=== PATIENT | male | born 1995 ===

== ENCOUNTER 2023-12-24 12:58 | Emergency (ER) | payer OTHER, SELFPAY ==
[2023-12-24 13:29] VITALS: BP 136/79; PULSE 69; RESP 18; TEMP 36.6; O2SAT 99; BMI 24.6
--- NOTE | 2023-12-24 13:30 | ED_ITS ---
HPI - Skin/Abscess/Foreign Bdy General Chief complaint: Skin/Abscess/Foreign Body Stated complaint: abscess Time Seen by Provider: 12/24/23 20:17 Source: patient Mode of arrival: ambulatory Limitations: no limitations History of Present Illness ED Provider: Basilia Young PA-C HPI narrative: 28-year-old male with no pertinent medical history presents for evaluation of multiple painful lesions on his left hip/thigh. For the last week he has noticed several small areas of painful irritation which he thought were ingrown hairs, they have been worsening and some have started to come to a head and drain. No known allergies to antibiotics. No fever or chills. No history of DM. MD complaint: lesion Onset (ago): week(s) (1) Location: LLE Associated symptoms: denies other symptoms Treatments prior to arrival: none Related Data Previous Rx's ?Medication ?Instructions ?Recorded cephalexin 500 mg capsule 500 mg PO Q6H 7 days #28 caps 12/24/23 doxycycline hyclate 100 mg tablet 100 mg PO BID #14 tabs 12/24/23 Allergies Allergy/AdvReac Type Severity Reaction Status Date / Time No Known Allergies Allergy Verified 12/24/23 13:32 [No Known Allergies*] Review of Systems 2 Review of Systems: Yes all other systems are reviewed and are negative PMFSH Social History Social History Advance Directives: No Advance Directives Information Provided: Yes Do you have a plan to hurt others: No Plan Physical Exam 2 Vital Signs: Vital Signs: Last Vital Signs Temp 97.8 F 12/24/23 21:11 Pulse 66 12/24/23 21:11 Resp 16 12/24/23 21:11 BP 128/79 12/24/23 21:11 Pulse Ox 100 12/24/23 21:11 O2 Del Method Room Air 12/24/23 21:11 BMI result Body Mass Index 24.6 Appearance: Alert. Oriented X3. No acute distress. Head: normocephalic, atraumatic. Neck: Normal inspection. Respiratory: No respiratory distress. Skin: Skin warm and dry. Normal skin color. Normal skin turgor. LLE shows about 6-8 inflamed hair follicles, one has scabbed over and several are coming to pustular head, mild surrounding erythema of each follicle. Extremities: No lower extremity edema. No joint swelling. Neuro/psych: Oriented X 3. No motor deficit. No sensory deficit. CN II-XII grossly intact. Normal speech and cognition. Course Course Course Narrative: This is a Rapid Medical Examination (RME) performed by Anna Colunga PA-C in triage. Full HPI, ROS, assessment and treatment plan per primary provider in the Main ED. 28 yo male here for eval of 5-6 abscessed areas on his left thigh over the last week. reports drainage from 2 of them. admits they began as a small pimple, now enlarging. admits to [facility]. denies known tick or inscet bites. denies fever/chills. has never had anything like this before. he is well appearing in triage. vitals are stable. exam of area limited in triage. complete PE to be done when patient is pulled back to ED bed. Plan: basic labs ordered Medications Administered Discontinued Medications Generic Name Dose Route Start Last Admin Trade Name Freq PRN Reason Stop Dose Admin Cephalexin HCl 500 mg 12/24/23 20:55 12/24/23 21:06 Cephalexin 500 Mg Capsule PO 12/24/23 20:56 500 mg ONCE ONE Administration Doxycycline Monohydrate 100 mg 12/24/23 20:55 12/24/23 21:06 Doxycycline Monohydrate 100 Mg Capsule PO 12/24/23 20:56 100 mg ONCE ONE Administration Glipizide 2.5 mg 12/24/23 20:20 12/24/23 20:52 Glipizide 5 Mg Tablet PO 12/24/23 20:21 Not Given ONCE ONE Ibuprofen 600 mg 12/24/23 20:55 12/24/23 21:06 Ibuprofen 600 Mg Tablet PO 12/24/23 20:56 600 mg ONCE ONE Administration Metformin HCl 850 mg 12/24/23 20:20 12/24/23 20:52 Metformin Hcl 850 Mg Tablet PO 12/24/23 20:21 Not Given ONCE ONE Medical Decision Making Medical Decision Making MDM Narrative: 28-year-old male with pertinent medical history presents for evaluation of multiple lesions on his left hip/thigh. Lesions on left hip/thigh area are consistent with folliculitis. Surrounding erythema and pustular heads are concerning for infection so will cover with antibiotics, green pus indicates MRSA coverage. Encouraged patient to do frequent hot compresses and/or baths with antibacterial soaps. Differential Diagnosis Differential Diagnoses: The differential diagnosis associated with the presentation includes folliculitis, abscess, cellulitis Lab Data MDM Lab Attestation statement: I reviewed the patient's lab results. 12/24/23 14:47 12/24/23 14:47 Labs: Lab Results 12/24/23 Range/Units 14:47 WBC 7.9 (4.8-10.8) X10*3/uL RBC 4.85 (4.60-5.80) X10*6/uL Hgb 14.3 (14.0-18.0) g/dl Hct 43.3 (42.0-52.0) % MCV 89.3 (80.0-98.0) fL MCH 29.5 (27.0-33.0) pg MCHC 33.0 (31.0-36.0) g/dl RDW 14.0 (11.0-16.0) % Plt Count 351 (160-400) X10*3/uL MPV 10.0 (9.4-12.4) fL Immature Gran % (Auto) 0.3 (0.0-0.4) % Neut % (Auto) 57.9 (45-73) % Lymph % (Auto) 31.8 (20-40) % [place] % (Auto) 7.2 (2-11) % Eos % (Auto) 2.2 (0-4) % Baso % (Auto) 0.6 (0-2) % Lymph # (Auto) 2.5 (1.2-4.9) X10*3/uL [place] # (Auto) 0.6 (0.1-1.2) X10*3/uL Eos # (Auto) 0.2 (0.0-0.4) X10*3/uL Baso # (Auto) 0.1 (0.0-0.2) X10*3/uL Abs Immat Gran (auto) 0.02 (0.00-0.03) X10*3/uL Absolute Neuts (auto) 4.6 (2.0-8.3) x10*3/uL Absolute Nucleated RBC 0.000 (0.0-0.012) X10*3/uL Nucleated RBC % (auto) 0.0 (0.0-0.2) /100WBC Sodium 141 (135-145) mmol/L Potassium 3.7 (3.3-5.1) mmol/L Chloride 107 (96-108) mmol/L Carbon Dioxide 30 H (22-29) mmol/L Anion Gap 8 L (12-20) BUN 16 (9-16) mg/dL Creatinine 0.92 (0.5-1.4) mg/dL Estim Creat Clear Calc 107.8 Estimated GFR > 60 Random Glucose 101 (60-115) mg/dL Calcium 9.7 (8.4-10.2) mg/dL Magnesium 2.1 (1.6-2.6) mg/dL Total Bilirubin 0.4 (0.0-1.0) mg/dL AST 15 (5-37) U/L ALT 14 (0-40) U/L Alkaline Phosphatase 78 (39-117) U/L Total Protein 7.7 (6.5-8.0) g/dL Albumin 4.3 (3.5-5.0) g/dL Lipase 24 (8-78) U/L External Record Review External record reviewed: Prior outpatient labs Prescription Management I considered prescription management with: Pain Medication and Antibiotic Critical Care Time Critical Care Time Critical Care Time: No Discharge Plan Discharge Clinical Impression: Folliculitis Patient Disposition: Home, Self-Care Instructions: Folliculitis (ED) Additional Instructions: Take the prescribed antibiotics as directed, complete the entire course and do not miss any doses Use warm compresses to the area several times per day If you develop new or worsening symptoms call 911 or come back to the ER for further evaluation. Prescriptions: New cephalexin 500 mg capsule 500 mg PO Q6H 7 Days Qty: 28 0RF doxycycline hyclate 100 mg tablet 100 mg PO BID Qty: 14 0RF Stand Alone Forms: Work/School Release Interventions: ED Discharge Assessment Last Done: 12/24/23 21:11 Discharge Date/Time: 12/24/23 21:11 Print Language: Yakut
[2023-12-24 14:53] LABS: MANUAL DIFF FLAG NO
[2023-12-24 14:55] LABS: Basophils Absolute Auto 0.1 X10*3/uL (0.0-0.2); Basophils Percent Auto 0.6 % (0-2); Eosinophils Absolute Auto 0.2 X10*3/uL (0.0-0.4); Eosinophils Percent Auto 2.2 % (0-4); Hematocrit 43.3 % (42.0-52.0); Hemoglobin 14.3 g/dl (14.0-18.0); Imm Gran Abs Auto 0.02 X10*3/uL (0.00-0.03); Imm Gran Pct Auto 0.3 % (0.0-0.4); Lymphocytes Absolute Auto 2.5 X10*3/uL (1.2-4.9); Lymphocytes Percent Auto 31.8 % (20-40); Mean Corpuscular Hemoglobin 29.5 pg (27.0-33.0); Mean Corpuscular Volume 89.3 fL (80.0-98.0); Monocytes Absolute Auto 0.6 X10*3/uL (0.1-1.2); Monocytes Percent Auto 7.2 % (2-11); Neutrophils Absolute Auto 4.6 x10*3/uL (2.0-8.3); Neutrophils Percent Auto 57.9 % (45-73); Platelet Count 351 X10*3/uL (160-400); Red Blood Count 4.85 X10*6/uL (4.60-5.80); White Blood Count 7.9 X10*3/uL (4.8-10.8)
[2023-12-24 15:19] LABS: Alanine Aminotransferase 14 U/L (0-40); Albumin Level 4.3 g/dL (3.5-5.0); Alkaline Phosphatase 78 U/L (39-117); Anion Gap 8 (12-20); Aspartate Amino Transferase 15 U/L (5-37); Bilirubin Total 0.4 mg/dL (0.0-1.0); Blood Urea Nitrogen 16 mg/dL (9-16); Calcium 9.7 mg/dL (8.4-10.2); Carbon Dioxide 30 mmol/L (22-29); Chloride 107 mmol/L (96-108); Creatinine Clr Calc Pharmacy 107.8; Estimated Glomerular Filt Rate > 60; Glucose Random 101 mg/dL (60-115); Lipase 24 U/L (8-78); Magnesium 2.1 mg/dL (1.6-2.6); Potassium 3.7 mmol/L (3.3-5.1); Sodium 141 mmol/L (135-145); Total Protein 7.7 g/dL (6.5-8.0)
[2023-12-24 20:27] VITALS: BP 128/79; PULSE 66; RESP 16; TEMP 36.6; O2SAT 100
[2023-12-24] MEDS: Doxycycline Monohydrate 100 MG CAPSULE PO (21:06)
[2023-12-24] MEDS: cephALEXin 500 MG CAPSULE PO (21:06)
[2023-12-24] MEDS: Ibuprofen 600 MG TABLET PO (21:06)
[2023-12-24 21:11] VITALS: BP 128/79; PULSE 66; RESP 16; TEMP 36.6; O2SAT 100
== END 2023-12-24 21:11 | disposition home or self-care (01) ==
PROVIDERS: Physician Assistant Medical; Emergency Provider Internal Medicine
DX: L73.9 Follicular disorder, unspecified (principal); Z79.899 Other long term (current) drug therapy
CPT/HCPCS: 36415; 80053; 83690; 83735; 85025; 99283

== ENCOUNTER 2024-06-04 14:26 | Observation (INO) | payer MEDICAID, OTHER, SELFPAY ==
--- NOTE | ~2024-06-04 | CT_ITS ---
EXAMINATION: CT ABDOMEN AND PELVIS WITHOUT CONTRAST CLINICAL INFORMATION: Left lower abdominal pain and bulge. Evaluate for lymphadenopathy or hernia COMPARISON: CT abdomen and pelvis April 14, 2019 TECHNIQUE: Multidetector volumetric imaging was performed from the superior aspect of the liver through the pubic symphysis. Sagittal and coronal reformatted images were obtained on the technologist's workstation. This CT examination was performed using dose optimization techniques as appropriate, variously including the following: *Automated exposure control *Adjustment of mA and/or kV according to patient size (this includes techniques or standardized protocols for targeted exams where dose is matched to indication/reason for exam; i.e. extremities or head) *Use of iterative reconstruction technique DLP: 485 mGy-cm FINDINGS: LUNG BASES: The visualized lung bases are unremarkable. LIVER, GALLBLADDER, AND BILIARY TREE: The liver is normal in size, shape, and attenuation. No focal hepatic lesion or biliary ductal dilatation is present. The gallbladder is unremarkable with no evidence of radiopaque gallstones, gallbladder wall thickening, or obvious pericholecystic inflammatory changes. PANCREAS: Unremarkable. SPLEEN: Unremarkable. ADRENAL GLANDS: Unremarkable. KIDNEYS AND URETERS: The kidneys are normal in size, shape, and attenuation. No hydronephrosis, hydroureter, or calculi seen. No perinephric stranding. BLADDER: Unremarkable. GASTROINTESTINAL TRACT: The small and large bowel are unremarkable. The appendix is unremarkable. ABDOMINAL WALL: No significant hernia is appreciated. LYMPH NODES: Enlarged left inguinal lymph nodes measuring up to 1.9 x 1.2 cm. VASCULAR: Unremarkable. PELVIC VISCERA: Unchanged 1.3 cm prostate cyst OSSEOUS STRUCTURES: Unremarkable. CT/CT abdomen pelvis wo IV con IMPRESSION: Enlarged left inguinal lymph nodes measuring up to 1.9 x 1.2 cm. Fleischner guidelines were followed. Electronically signed by: Lauri Singh MD 06/04/2024 06:42 PM EST
--- NOTE | ~2024-06-04 | XR_ITS ---
EXAMINATION: XR KNEE, LEFT CLINICAL INFORMATION: Left knee swelling. COMPARISON: None available. TECHNIQUE: Four views of the left knee. FINDINGS: No fracture or dislocation. No joint space narrowing or marginal osteophytes. No osseous erosion. No abnormal soft tissue calcification. No joint effusion. Soft tissue swelling ventral to the patella which could represent a soft tissue contusion versus prepatellar bursitis. XR/XR knee LT 4V IMPRESSION: Soft tissue swelling ventral to the patella which could represent a soft tissue contusion versus prepatellar bursitis. Electronically signed by: John Coy MD 06/04/2024 04:52 PM EST
--- NOTE | 2024-06-04 14:48 | ED_ITS ---
HPI - General Adult General Chief complaint: Extremity Problem Stated complaint: cyst on groin and knee Time Seen by Provider: 06/04/24 17:18 Source: patient and family (spouse) Mode of arrival: ambulatory Limitations: no limitations History of Present Illness ED Provider: ELMIRA PEDRO PA-C HPI narrative: 28 year old male with no significant pmhx presents to the ED today for evaluation of left knee pain/ swelling/ redness x3 days. Admits the redness is now extending down the leg. Admits to pain with flexing the left knee. Denies injury or trauma to the knee. Denies history of gout. Denies fever, chills, N/V, chest pain/ sob. Denies IVDU. Denies known tick or insect bites. Denies concern for sexually transmitted infection. denies recent travel or long car rides. He also complains of a small lump to his left lower abdomen/groin region which began a few days prior to his knee pain. Reports history of similar in the past. States he was diagnosed with folliculitis. Admits the pain extends down into his left testicle. Pain is primarily present with pressing on the affected area. Denies any drainage or overlying skin changes. Related Data Previous Rx's ?Medication ?Instructions ?Recorded cephalexin 500 mg capsule 500 mg PO Q6H 7 days #28 caps 12/24/23 doxycycline hyclate 100 mg tablet 100 mg PO BID #14 tabs 12/24/23 Allergies Allergy/AdvReac Type Severity Reaction Status Date / Time No Known Allergies Allergy Verified 06/04/24 14:50 [No Known Allergies*] Review of Systems 2 Review of Systems: Constitutional: No fever, chills, fatigue, night sweats, weight changes ENT/Mouth: No ear pain, hearing loss, nasal congestion, sinus pain, rhinorrhea, sore throat Eyes: No eye pain, swelling, redness, vision changes, discharge Cardio: No chest pain, palpitations, HUMPHRIES, orthopnea, peripheral edema Pulm: No SOB, cough, sputum, wheezing, dyspnea, hemoptysis GI: No nausea, vomiting, hematemesis, abdominal pain, diarrhea, constipation, hematochezia, melena : No irregular bleeding, dysuria, frequency, urgency, hesitancy, hematuria, flank pain, urinary flow changes, urinary incontinence or retention MSK: No back pain, neck pain, joint pain, myalgias, +left knee pain/ swelling Skin: No lesions, rashes Neuro: No weakness, numbness, paresthesias, LOC, dizziness, headache Psych: No anxiety/panic, depression, SI/HI, AH/VH All other systems reviewed and are negative. [facility] Past Medical History Attestation statement: The following information was validated with the patient. Source: old records reviewed and nursing notes reviewed Social History Social History Patient Tobacco Use Status: Never used Tobacco Advance Directives: No Advance Directives Information Provided: No Nutrition Risks: No Nutritional Risk Physical Exam ED Vital Signs: Vital Signs - 24 hr 06/04/24 14:49 06/04/24 17:24 Temperature 99.5 F 97.8 F Pulse Rate 89 70 Respiratory Rate 16 16 Blood Pressure 131/82 166/72 H Pulse Oximetry 99 98 Oxygen Delivery Method Room Air Room Air BMI result Body Mass Index 25.2 vital signs stable General: Well appearing, in no acute distress. Skin: Warm, dry, intact. No rashes or lesions. Head: Normocephalic, atraumatic. EENT: Hearing is intact b/l. Conjunctiva clear. PERRLA. EOM intact. Moist mucous membranes.? Neck: Supple without LAD? Cardiac: Chest wall symmetric. RRR Lungs: Normal respiratory effort without accessory muscle use. CTA bilaterally. Abdomen: Soft, non-tender, non-distended. No rebound tenderness or guarding. Positive BS x4. small 2cm palpable mobile mass noted to left inguinal region, ttp. no overlying skin changes. no visible mass. no warmth or pointing. Back: No midline spinous or paraspinal tenderness. No step off deformity. Ext: +see picture of LLE below. noted erythema and swelling to left knee, extending distally to mid lower left leg. No noted deformity. No pointing No fluctuance Warm, tender. No crepitus Limited ROM to left knee on flexion secondary to pain. No calf 2+ PT/DP pulse intact. Sensation intact. Neuro: AOx3. Normal speech. Ambulating with limping gait. Psych: Appropriate mood and affect. Responds appropriately to questions. Course Course Course Narrative: This is an RME: Additional HPI, ROS, PE not included below will be deferred to primary provider. RME assessment and note performed by: Traci Dowd PA-C This is a [id number], with no known medical history who presents to the ER with complaints of left knee pain, redness and left inner groin swelling. symptoms stated in left groin 2 days ago, then progressed to his left knee yesterday. Left knee is erythematous. Plan: Labs, xray, further er eval needed Reevaluation(s) Reevaluation #1: 183 -- CBC with leukocytosis to 12. No left shift. No anemia. H&H stable. Chemistry without acute electrolyte abnormality requiring intervention. No YU. Lactic WNL at 1.3. Normal liver function. ESR WNL. Elevated CRP. X-ray left knee shows soft tissue swelling ventral to the patella which may represent soft tissue contusion versus prepatellar bursitis. ct a/p showing enlarged inguinal lymph node to left inguinal chain, likely reactive to current infection. > physical exam is concerning for infectious bursitis of left knee. Erythema is now extending distally. Concern for rapid progression. I did order IV dose of vancomycin and cefazolin. He was given morphine for pain control. Xavier VENEGAS at bedside to evaluate patient. Neither him nor Dr. Castro feel as though orthopedic involvement is necessary at this point. No surgical management warranted. States that from an orthopedic standpoint, they would not get involved unless patient fails antibiotic therapy. I did reach out to hospitalist Dr. Alexander who has accepted patient admission to medicine for IV antibiotic therapy. Dr. Alexander to place admission orders. Medications Administered Generic Name Dose Route Start Last Admin Trade Name Freq PRN Reason Stop Dose Admin Docusate Sodium 100 mg 06/04/24 21:00 06/04/24 21:45 Docusate Sodium 100 Mg Capsule PO Not Given BID MARCO Enoxaparin Sodium 40 mg 06/04/24 20:00 06/04/24 21:37 Enoxaparin Sodium 40 Mg/0.4 Ml Syringe SUBCUT 40 mg Q24H MARCO Administration Doxycycline Hyclate 100 mg/ 250 mls @ 166.67 mls/hr 06/04/24 20:00 06/04/24 21:31 Sodium Chloride IV 166.67 mls/hr Q12H MARCO Administration Discontinued Medications Generic Name Dose Route Start Last Admin Trade Name Freq PRN Reason Stop Dose Admin Vancomycin HCl 1,000 mg/ 535 mls @ 267.5 mls/hr 06/04/24 19:00 06/04/24 21:40 Vancomycin HCl 750 mg/ Sodium IV 06/04/24 20:59 267.5 mls/hr Chloride ONCE ONE Administration Cefazolin Sodium/Dextrose 2 gm in 50 mls @ 100 mls/hr 06/04/24 18:04 06/04/24 19:35 Ancef IV 06/04/24 18:33 Infused ONCE ONE Infusion Morphine Sulfate 2 mg 06/04/24 17:34 06/04/24 18:55 Morphine Sulfate 2 Mg/Ml Cartridge IVPUSH 06/04/24 17:35 2 mg ONCE ONE Administration Protocol Medical Decision Making Medical Decision Making [facility] Narrative: 28 year old male with no significant pmhx presents to the ED today for evaluation of left knee pain/ swelling/ redness x3 days. Patient hypertensive, vitals otherwise WNL. Afebrile. He is nontoxic-appearing and in no acute distress. Lying on exam bed. On exam of LLE, noted erythema and swelling to left knee, extending distally to mid lower left leg. No noted deformity. No pointing No fluctuance Warm, tender. No crepitus Limited ROM to left knee on flexion secondary to pain. No calf 2+ PT/DP pulse intact. Sensation intact. He is ambulating with limping gait. On abdominal exam, small 2cm palpable mobile mass noted to left inguinal region, ttp. no overlying skin changes. no visible mass. no warmth or pointing. not reproducible. Differential diagnosis includes bursitis, septic bursitis, arthritis, tendonitis Unlikely DVT, gout, nv compromise, threat to limb, compartment syndrome, fracture, dislocation, lyme arthritis Concern for hernia versus reactive lymphadenopathy > CT abdomen/ pelvis ordered to further characterize. Plan for labs, lactate, blood cultures, imaging, re-evaluation. Differential Diagnosis Differential Diagnoses: The differential diagnosis associated with the presentation includes as above. Admission/Observation Consideration of admission/observation: Escalation of care including admission/observation considered Patient admitted to medicine for IV antibiotic treatment Consult Healthcare Provider Management of the patient was discussed with: Hospitalist (Dr. Alexander) Lab Data [facility] Lab Attestation statement: I reviewed the patient's lab results. as above. 06/04/24 15:47 06/04/24 15:47 Labs: Lab Results 06/04/24 Range/Units 15:47 WBC 12.0 H (4.8-10.8) X10*3/uL RBC 5.02 (4.60-5.80) X10*6/uL Hgb 15.0 (14.0-18.0) g/dl Hct 45.1 (42.0-52.0) % MCV 89.8 (80.0-98.0) fL MCH 29.9 (27.0-33.0) pg MCHC 33.3 (31.0-36.0) g/dl RDW 14.4 (11.0-16.0) % Plt Count 276 (160-400) X10*3/uL MPV 9.9 (9.4-12.4) fL Immature Gran % (Auto) 0.3 (0.0-0.4) % Neut % (Auto) 72.8 (45-73) % Lymph % (Auto) 18.0 L (20-40) % [place] % (Auto) 7.3 (2-11) % Eos % (Auto) 1.3 (0-4) % Baso % (Auto) 0.3 (0-2) % Lymph # (Auto) 2.2 (1.2-4.9) X10*3/uL [place] # (Auto) 0.9 (0.1-1.2) X10*3/uL Eos # (Auto) 0.2 (0.0-0.4) X10*3/uL Baso # (Auto) 0.0 (0.0-0.2) X10*3/uL Abs Immat Gran (auto) 0.04 H (0.00-0.03) X10*3/uL Absolute Neuts (auto) 8.7 H (2.0-8.3) x10*3/uL Absolute Nucleated RBC 0.000 (0.0-0.012) X10*3/uL Nucleated RBC % (auto) 0.0 (0.0-0.2) /100WBC ESR 8 (0-15) MM/HR Sodium 142 (135-145) mmol/L Potassium 3.8 (3.3-5.1) mmol/L Chloride 105 (96-108) mmol/L Carbon Dioxide 27 (22-29) mmol/L Anion Gap 14 (12-20) BUN 14 (9-16) mg/dL Creatinine 0.90 (0.5-1.4) mg/dL Estim Creat Clear Calc 110.2 Estimated GFR > 60 Random Glucose 98 (60-115) mg/dL Lactic Acid 1.3 (0.5-2.0) mmol/L Calcium 10.0 (8.4-10.2) mg/dL Total Bilirubin 1.0 (0.0-1.0) mg/dL AST 21 (5-37) U/L ALT 21 (0-40) U/L Alkaline Phosphatase 68 (39-117) U/L C-Reactive Protein 4.22 H (< or = 0.50) mg/dL Total Protein 7.5 (6.5-8.0) g/dL Albumin 4.4 (3.5-5.0) g/dL Independent Interpretation I performed an independent interpretation of an: Plain X-Ray and CT Scan Interpretation: xr left knee with soft tissue swelling, no fracture. ct abdomen/ pelvis with enlarged left inguinal lymph nodes Radiology Impression Discussion of test interpretation with radiology: I have reviewed the radiologist's reading. Radiologist Impression: EXAMINATION: XR KNEE, LEFT CLINICAL INFORMATION: Left knee swelling. COMPARISON: None available. TECHNIQUE: Four views of the left knee. FINDINGS: No fracture or dislocation. No joint space narrowing or marginal osteophytes. No osseous erosion. No abnormal soft tissue calcification. No joint effusion. Soft tissue swelling ventral to the patella which could represent a soft tissue contusion versus prepatellar bursitis. XR/XR knee LT 4V IMPRESSION: Soft tissue swelling ventral to the patella which could represent a soft tissue contusion versus prepatellar bursitis. Electronically signed by: John Coy MD 06/04/2024 04:52 PM [facility] [place] [place] EXAMINATION: CT ABDOMEN AND PELVIS WITHOUT CONTRAST CLINICAL INFORMATION: Left lower abdominal pain and bulge. Evaluate for lymphadenopathy or hernia COMPARISON: CT abdomen and pelvis April 14, 2019 TECHNIQUE: Multidetector volumetric imaging was performed from the superior aspect of the liver through the pubic symphysis. Sagittal and coronal reformatted images were obtained on the technologist's workstation. This CT examination was performed using dose optimization techniques as appropriate, variously including the following: *Automated exposure control *Adjustment of mA and/or kV according to patient size (this includes techniques or standardized protocols for targeted exams where dose is matched to indication/reason for exam; i.e. extremities or head) *Use of iterative reconstruction technique DLP: 485 mGy-cm FINDINGS: LUNG BASES: The visualized lung bases are unremarkable. LIVER, GALLBLADDER, AND BILIARY TREE: The liver is normal in size, shape, and attenuation. No focal hepatic lesion or biliary ductal dilatation is present. The gallbladder is unremarkable with no evidence of radiopaque gallstones, gallbladder wall thickening, or obvious pericholecystic inflammatory changes. PANCREAS: Unremarkable. SPLEEN: Unremarkable. ADRENAL GLANDS: Unremarkable. KIDNEYS AND URETERS: The kidneys are normal in size, shape, and attenuation. No hydronephrosis, hydroureter, or calculi seen. No perinephric stranding. BLADDER: Unremarkable. GASTROINTESTINAL TRACT: The small and large bowel are unremarkable. The appendix is unremarkable. ABDOMINAL WALL: No significant hernia is appreciated. LYMPH NODES: Enlarged left inguinal lymph nodes measuring up to 1.9 x 1.2 cm. VASCULAR: Unremarkable. PELVIC VISCERA: Unchanged 1.3 cm prostate cyst OSSEOUS STRUCTURES: Unremarkable. CT/CT abdomen pelvis wo IV con IMPRESSION: Enlarged left inguinal lymph nodes measuring up to 1.9 x 1.2 cm. Fleischner guidelines were followed. Electronically signed by: Lauri Singh MD 06/04/2024 06:42 PM [facility] [place] [place] Independent Historian Clinical information obtained from an independent historian. History obtained from or confirmed by: Spouse () External Record Review External record reviewed: Inpatient record Prescription Management I considered prescription management with: Pain Medication and Antibiotic Social Determinants Patient?s care significantly limited by Social Determinants of Health including: Other Social Determinant of Health Critical Care Time Critical Care Time Critical Care Time: Yes Total Critical Care Time: 32 Attestation: Critical care time in the amount of 32 minutes has been provided to the patient in terms of direct patient care, frequent reevaluation on IV morphine, consultation with hospitalist, review and interpretation of medical data and results, and management of potentially life-threatening conditions. This is all outside of any medical procedures. Discharge Plan Discharge Clinical Impression: Inguinal lymphadenopathy Infected prepatellar bursa Qualifiers: Laterality: left Qualified Code(s): M71.162 - Other infective bursitis, left knee Patient Disposition: Admitted As Inpatient
[2024-06-04 14:49] VITALS: BP 131/82; PULSE 89; RESP 16; TEMP 37.5; O2SAT 99; BMI 25.2
[2024-06-04 15:54] LABS: MANUAL DIFF FLAG NO
[2024-06-04 15:56] LABS: Basophils Percent Auto 0.3 % (0-2); Eosinophils Absolute Auto 0.2 X10*3/uL (0.0-0.4); Eosinophils Percent Auto 1.3 % (0-4); Hematocrit 45.1 % (42.0-52.0); Imm Gran Abs Auto 0.04 X10*3/uL (0.00-0.03); Imm Gran Pct Auto 0.3 % (0.0-0.4); Lymphocytes Absolute Auto 2.2 X10*3/uL (1.2-4.9); Mean Corpuscular HGB Conc 33.3 g/dl (31.0-36.0); Mean Corpuscular Hemoglobin 29.9 pg (27.0-33.0); Mean Corpuscular Volume 89.8 fL (80.0-98.0); Mean Platelet Volume 9.9 fL (9.4-12.4); Monocytes Absolute Auto 0.9 X10*3/uL (0.1-1.2); Monocytes Percent Auto 7.3 % (2-11); Neutrophils Absolute Auto 8.7 x10*3/uL (2.0-8.3); Neutrophils Percent Auto 72.8 % (45-73); Platelet Count 276 X10*3/uL (160-400); Red Blood Count 5.02 X10*6/uL (4.60-5.80); Red Cell Distribution Width 14.4 % (11.0-16.0)
[2024-06-04 16:14] LABS: Lactic Acid 1.3 mmol/L (0.5-2.0)
[2024-06-04 16:25] LABS: Alanine Aminotransferase 21 U/L (0-40); Albumin Level 4.4 g/dL (3.5-5.0); Anion Gap 14 (12-20); Aspartate Amino Transferase 21 U/L (5-37); Blood Urea Nitrogen 14 mg/dL (9-16); C Reactive Protein 4.22 mg/dL (< or = 0.50); Carbon Dioxide 27 mmol/L (22-29); Chloride 105 mmol/L (96-108); Creatinine Clr Calc Pharmacy 110.2; Estimated Glomerular Filt Rate > 60; Glucose Random 98 mg/dL (60-115); Potassium 3.8 mmol/L (3.3-5.1); Sodium 142 mmol/L (135-145); Total Protein 7.5 g/dL (6.5-8.0)
[2024-06-04 16:47] LABS: Erythrocyte Sedimentation Rate 8 MM/HR (0-15)
[2024-06-04 17:24] VITALS: BP 166/72; PULSE 70; RESP 16; TEMP 36.6; O2SAT 98
[2024-06-04 17:57] LABS: Alkaline Phosphatase 68 U/L (39-117)
--- NOTE | 2024-06-04 18:40 | PM.IMHP ---
History of Present Illness Date of Service: 06/04/24 Attending physician on admission: Teresita Alexander Chief Complaint: Bursitis 29-year-old male came to the hospital(as history of left upper leg question abscesses few months ago as per the patient which was treated with antibiotics) because of had a small blister on his knee which popped and afterwards developed cellulitis of left lower leg as well as has lymphangitis possible of left upper leg. Has significant area of erythema, difficulty to walk due to significant pain. denies known tick or inscet bites. denies fever/chills. has never had anything like this before. Lab imaging reviewed: Patient has leukocytosis of 12, BMP normal, knee x-ray shows possible patellar bursitis. ESR normal, CRP elevated in range of 4. CT abdomen pending Patient was given vancomycin and cefazolin in the ED and requested admission for acute bursitis/cellulitis of the left knee, and patient is unable to walk due to significant pain/ intractable pain. Denies any new complaint of chest pain or shortness of breath or abdominal pain or fever or chills or nausea or vomiting or weakness or numbness. Review of Systems Review of Systems: Yes all other systems are reviewed and are negative PMFSH Social History Advance Directives: No Advance Directives Information Provided: No Meds Allergies Allergy/AdvReac Type Severity Reaction Status Date / Time No Known Allergies Allergy Verified 06/04/24 14:50 [No Known Allergies*] Active Medications: Current Medications Acetaminophen (Acetaminophen 325 Mg Tablet) 650 mg PO Q6H PRN PRN Reason: Pain, Mild (Pain Scale 1-3), fever or headache Calcium Carbonate (Calcium Carbonate 750 Mg Tab.Chew) 750 mg PO Q4H PRN PRN Reason: Heartburn Vancomycin HCl 1,000 mg/Vancomycin HCl 750 mg/ Sodium Chloride 535 mls @ 267.5 mls/hr IV ONCE ONE Stop: 06/04/24 20:59 Magnesium Hydroxide (Milk Of Magnesia 30 Ml Oral.Susp) 30 ml PO DAILY PRN PRN Reason: Constipation Melatonin (Melatonin 3 Mg Tablet) 6 mg PO BEDTIME PRN PRN Reason: Insomnia Sodium Chloride (0.9 % Sodium Chloride Flush 3 Ml Syringe) 3 ml IVFLUSH QSHIFT [facility] Physical Exam Vital Signs and Narrative: Vital Signs: Last Vital Signs Temp 97.8 F 06/04/24 17:24 Pulse 70 06/04/24 17:24 Resp 16 06/04/24 17:24 BP 166/72 H 06/04/24 17:24 Pulse Ox 98 06/04/24 17:24 O2 Del Method Room Air 06/04/24 17:24 BMI result Body Mass Index 25.2 Appearance: Alert.? Oriented X3.pain Eyes: Pupils equal, round and reactive to light.? Sclera nonicteric.? ENT: Pharynx normal.? Moist mucous membranes. cvs: rrr, [id number] , no murmur res: clear to auscultation ,no rhonchii or wheezing abd: no rebound or guarding ,nt, bs present. ext pulses present , no cyanosis left knee -erythema left lower leg and some area of left upper leg, lymphangitis. neuro: axo3 , nonfocal. Results Labs 06/04/24 15:47 06/04/24 15:47 Labs: Laboratory Results - last 24 hr 06/04/24 15:47 MCV 89.8 MCH 29.9 MCHC 33.3 RDW 14.4 Plt Count 276 MPV 9.9 Immature Gran % (Auto) 0.3 Neut % (Auto) 72.8 Lymph % (Auto) 18.0 L [place] % (Auto) 7.3 Eos % (Auto) 1.3 Baso % (Auto) 0.3 Lymph # (Auto) 2.2 [place] # (Auto) 0.9 Eos # (Auto) 0.2 Baso # (Auto) 0.0 Abs Immat Gran (auto) 0.04 H Absolute Neuts (auto) 8.7 H Absolute Nucleated RBC 0.000 Nucleated RBC % (auto) 0.0 ESR 8 Anion Gap 14 Estim Creat Clear Calc 110.2 Estimated GFR > 60 Random Glucose 98 Lactic Acid 1.3 Calcium 10.0 Total Bilirubin 1.0 AST 21 ALT 21 Alkaline Phosphatase 68 C-Reactive Protein 4.22 H Total Protein 7.5 Albumin 4.4 Imaging Radiologist's Impressions: Impressions Knee X-Ray 06/04/24 16:26 IMPRESSION: Soft tissue swelling ventral to the patella which could represent a soft tissue contusion versus prepatellar bursitis. Electronically signed by: John Coy MD 06/04/2024 04:52 PM [facility] Workstation: [id number] Assessment and Plan (1) Infected prepatellar bursa: Qualifiers: Laterality: left Qualified Code(s): M71.162 - Other infective bursitis, left knee Status: Acute Plan 28-year-old male with left knee bursitis: Unable to walk Significant pain intractable Will start patient on IV morphine, IV antibiotics doxy/cefazolin. bowel regimen Patient will be admitted observation stay: Due to unable to ambulate/intractable pain need IV antibiotics/IV pain medications, will benefit from2 midnight stays. Above management discussed with the patient and his family at bedside in detail length he understand and in agreement with the above plan, time spent 70 minute, patient full code. Quality Stroke Does the patient have a stroke diagnosis?: No VTE Prior VTE?: No VTE Risk Level:: Medical - moderate - high VTE Device Contraindication: N/A - Device Ordered VTE Drug Contraindication: N/A - Med Ordered
[2024-06-04 18:55] VITALS: RESP 16
[2024-06-04] MEDS: Morphine Sulfate 2 MG/ML CARTRIDGE IVPUSH (18:55)
[2024-06-04] MEDS: ceFAZolin Sodium/Dextrose,Iso 2 GM/50 ML PIGGYBACK IV (18:56)
--- NOTE | 2024-06-04 19:18 | PC.NURSE ---
report given to overflow nurse for when room is ready
[2024-06-04 20:00] VITALS: BP 125/75; PULSE 75; RESP 18; TEMP 36.3; O2SAT 98
[2024-06-04] MEDS: Doxycycline Hyclate 100 MG in 0.9 % Sodium Chloride 250 ML 166.67 MG IV (21:31)
[2024-06-04] MEDS: Enoxaparin Sodium 40 MG/0.4 ML SYRINGE SUBCUT (21:37)
[2024-06-04] MEDS: vancomycin HCL 1,000 MG, vancomycin HCL 750 MG in 0.9 % Sodium Chloride 500 ML 267.5 MG IV (21:40)
[2024-06-05] VITALS: BP 129/67; PULSE 73; RESP 16; TEMP 36.5; O2SAT 99
--- NOTE | 2024-06-05 00:11 | PC.NURSE ---
pt c/o of itching, started in his head, then neck and then arms. states it, woke him up. [place] texed Dr Hankins
[2024-06-05] MEDS: 0.9 % Sodium Chloride Flush 3 ML SYRINGE IVFLUSH ×3 (00:20→19:56)
[2024-06-05] MEDS: diphenhydrAMINE HCL 50 MG/ML VIAL IVPUSH (00:21)
[2024-06-05] MEDS: ceFAZolin Sodium 1 GM VIAL 2 GM IVPUSH ×3 (00:22→16:49)
--- NOTE | 2024-06-05 06:56 | PC.NURSE ---
report given Jayshree COLLAZO
[2024-06-05 08:00] VITALS: BP 120/67; PULSE 84; RESP 16; TEMP 36.7; O2SAT 94
[2024-06-05] MEDS: Docusate Sodium 100 MG CAPSULE PO ×2 (08:53→19:56)
[2024-06-05] MEDS: Acetaminophen 325 MG TABLET 650 MG PO ×2 (08:53→16:56)
[2024-06-05] MEDS: Doxycycline Hyclate 100 MG in 0.9 % Sodium Chloride 250 ML 275 MG IV (08:53)
[2024-06-05] MEDS: oxyCODONE HCl Immed Release 5 MG TABLET PO ×3 (08:53→22:58)
--- NOTE | 2024-06-05 09:30 | PC.NURSE ---
Resumed care at 0700. He is currently resting comfortably, able to ambulate to the bathroom independently. Pt given PRN pain medication per SEP. Call neumann within reach
--- NOTE | 2024-06-05 10:53 | PHA.MEDREC ---
Pharmacy Consult ? Medication Reconciliation Pharmacy has completed the medication reconciliation. Pt states no meds.
--- NOTE | 2024-06-05 13:45 | HO.PM.IMPN ---
Subjective Subjective Date of Service: 06/05/24 Interval History: acute bursitis Review of Systems erythema /pain somewhat improving Physical Exam Vital Signs: Vital Signs: Last Vital Signs Temp 98.1 F 06/05/24 08:00 Pulse 84 06/05/24 08:00 Resp 16 06/05/24 08:00 BP 120/67 06/05/24 08:00 Pulse Ox 94 06/05/24 08:00 O2 Del Method Room Air 06/05/24 08:00 BMI result Body Mass Index 25.2 Appearance: Alert.? Oriented X3.pain cvs: rrr, [id number] , no murmur res: clear to auscultation ,no rhonchii or wheezing abd: no rebound or guarding ,nt, bs present. ext pulses present , no cyanosis left knee -erythema left lower leg and some area of left upper leg, lymphangitis. neuro: axo3 , nonfocal. Objective Data Active Medications Acetaminophen (Acetaminophen 325 Mg Tablet) 650 mg PO Q6H PRN PRN Reason: Pain, Mild (Pain Scale 1-3), fever or headache Last Admin: 06/05/24 08:53 Dose: 650 mg Documented By: SERGE Calcium Carbonate (Calcium Carbonate 750 Mg Tab.Chew) 750 mg PO Q4H PRN PRN Reason: Heartburn Cefazolin Sodium (Cefazolin Sodium 1 Gm Vial) 2 gm IVPUSH Q8H [facility] Last Admin: 06/05/24 10:17 Dose: 2 gm Documented By: SERGE Docusate Sodium (Docusate Sodium 100 Mg Capsule) 100 mg PO BID [facility] Last Admin: 06/05/24 08:53 Dose: 100 mg Documented By: SERGE Enoxaparin Sodium (Enoxaparin Sodium 40 Mg/0.4 Ml Syringe) 40 mg SUBCUT Q24H [facility] Last Admin: 06/04/24 21:37 Dose: 40 mg Documented By: ANTONIO Doxycycline Hyclate 100 mg/ (Sodium Chloride) 250 mls @ 166.67 mls/hr IV Q12H [facility] Last Infusion: 06/05/24 10:17 Dose: Infused Documented By: SERGE Magnesium Hydroxide (Milk Of Magnesia 30 Ml Oral.Susp) 30 ml PO DAILY PRN PRN Reason: Constipation Melatonin (Melatonin 3 Mg Tablet) 6 mg PO BEDTIME PRN PRN Reason: Insomnia Morphine Sulfate (Morphine Sulfate 2 Mg/Ml Cartridge) 2 mg IVPUSH Q3H PRN; Protocol PRN Reason: Pain, Moderate(Pain Scale 4-6) Oxycodone HCl (Oxycodone Hcl Immed Release 5 Mg Tablet) 5 mg PO Q6H PRN PRN Reason: Pain, Moderate(Pain Scale 4-6) Last Admin: 06/05/24 08:53 Dose: 5 mg Documented By: SERGE Senna (Sennosides 8.6 Mg Tablet) 17.2 mg PO BEDTIME PRN PRN Reason: Constipation Sodium Chloride (0.9 % Sodium Chloride Flush 3 Ml Syringe) 3 ml IVFLUSH QSHIFT [facility] Last Admin: 06/05/24 08:54 Dose: 3 ml Documented By: SERGE Labs 06/04/24 15:47 06/04/24 15:47 Labs: Laboratory Results - last 24 hr 06/04/24 15:47 MCV 89.8 MCH 29.9 MCHC 33.3 RDW 14.4 Plt Count 276 MPV 9.9 Immature Gran % (Auto) 0.3 Neut % (Auto) 72.8 Lymph % (Auto) 18.0 L [place] % (Auto) 7.3 Eos % (Auto) 1.3 Baso % (Auto) 0.3 Lymph # (Auto) 2.2 [place] # (Auto) 0.9 Eos # (Auto) 0.2 Baso # (Auto) 0.0 Abs Immat Gran (auto) 0.04 H Absolute Neuts (auto) 8.7 H Absolute Nucleated RBC 0.000 Nucleated RBC % (auto) 0.0 ESR 8 Anion Gap 14 Estim Creat Clear Calc 110.2 Estimated GFR > 60 Random Glucose 98 Lactic Acid 1.3 Calcium 10.0 Total Bilirubin 1.0 AST 21 ALT 21 Alkaline Phosphatase 68 C-Reactive Protein 4.22 H Total Protein 7.5 Albumin 4.4 Assessment and Plan (1) Infected prepatellar bursa: Status: Acute Plan 28-year-old male with left knee bursitis: Unable to walk Significant pain intractable continue on IV morphine, IV antibiotics doxy/cefazolin. bowel regimen Patient will be admitted observation stay: Due to unable to ambulate/intractable pain need IV antibiotics/IV pain medications, will benefit from2 midnight stays. Quality Stroke Does the patient have a stroke diagnosis?: No VTE Prior VTE?: No VTE Risk Level:: Medical - moderate - high VTE Device Contraindication: N/A - Device Ordered VTE Drug Contraindication: N/A - Med Ordered
[2024-06-05 14:19] VITALS: BP 124/74; PULSE 83; RESP 16; TEMP 36.6; O2SAT 99
[2024-06-05 16:44] VITALS: BP 135/88; PULSE 85; RESP 18; TEMP 36.5; O2SAT 99
--- NOTE | 2024-06-05 16:57 | PC.NURSE ---
pt c/o headache and L knee pain
[2024-06-05 19:25] VITALS: BP 132/68; PULSE 77; RESP 18; TEMP 36.4; O2SAT 98
[2024-06-05] MEDS: Enoxaparin Sodium 40 MG/0.4 ML SYRINGE SUBCUT (19:56)
[2024-06-05] MEDS: Doxycycline Hyclate 100 MG in 0.9 % Sodium Chloride 250 ML 166.67 MG IV (19:56)
[2024-06-06] MEDS: ceFAZolin Sodium 1 GM VIAL 2 GM IVPUSH (01:23)
[2024-06-06 03:13] VITALS: BP 114/56; PULSE 91; RESP 16; TEMP 36.8; O2SAT 100
[2024-06-06 08:00] VITALS: BP 110/67; PULSE 70; RESP 18; TEMP 36.9; O2SAT 96
[2024-06-06] MEDS: 0.9 % Sodium Chloride Flush 3 ML SYRINGE IVFLUSH ×2 (08:02→20:11)
[2024-06-06] MEDS: Docusate Sodium 100 MG CAPSULE PO ×2 (08:02→20:11)
[2024-06-06] MEDS: Doxycycline Hyclate 100 MG in 0.9 % Sodium Chloride 250 ML 166.67 MG IV ×2 (08:02→20:12)
[2024-06-06 09:15] LABS: Hematocrit 42.9 % (42.0-52.0); Hemoglobin 14.1 g/dl (14.0-18.0); Mean Corpuscular HGB Conc 32.9 g/dl (31.0-36.0); Mean Corpuscular Hemoglobin 29.6 pg (27.0-33.0); Mean Corpuscular Volume 89.9 fL (80.0-98.0); Platelet Count 257 X10*3/uL (160-400); Red Blood Count 4.77 X10*6/uL (4.60-5.80)
[2024-06-06 09:27] LABS: C Reactive Protein 1.87 mg/dL (< or = 0.50)
--- NOTE | 2024-06-06 11:05 | MHC.CM.PN ---
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
[2024-06-06 11:47] VITALS: BP 131/66; PULSE 76; RESP 16; TEMP 36.9; O2SAT 97
[2024-06-06] MEDS: ceFAZolin Sodium/Dextrose,Iso 2 GM/50 ML PIGGYBACK IV ×2 (11:47→19:35)
[2024-06-06] MEDS: Acetaminophen 325 MG TABLET 650 MG PO (11:47)
[2024-06-06] MEDS: oxyCODONE HCl Immed Release 5 MG TABLET PO ×2 (13:04→19:30)
[2024-06-06 15:05] VITALS: BP 116/64; PULSE 60; RESP 20; TEMP 37; O2SAT 98
--- NOTE | 2024-06-06 15:11 | P.CONOP_ITS ---
History of Present Illness HPI Consult date: 06/06/24 Chief complaint: Bursitis Narrative: Patient is a 28-year-old male who is admitted to hospital for evaluation and treatment of prepatellar bursitis of the left knee Patient reports that his redness and pain have improved, however he has noticed a focal area of purulence forming in the anterior aspect of his left knee, just distal to the patella The patient does report that ambulation and range of motion of his knee does still cause him significant discomfort Patient reports that this site began as what appeared to be an ingrown hair, but has progressively worsened to the he felt he needed to come to the hospital No other acute complaints or concerns at this time. Review of Systems 2 Review of Systems: Yes all other systems are reviewed and are negative PMFSH Social History Social History Household Members: Family Housing: Apartment Patient Tobacco Use Status: Never used Tobacco Substance Use Type: Marijuana service: No Meds Allergies Allergy/AdvReac Type Severity Reaction Status Date / Time No Known Allergies Allergy Verified 06/04/24 14:50 [No Known Allergies*] Active Medications: Current Medications Acetaminophen (Acetaminophen 325 Mg Tablet) 650 mg PO Q6H PRN PRN Reason: Pain, Mild (Pain Scale 1-3), fever or headache Last Admin: 06/06/24 11:47 Dose: 650 mg Calcium Carbonate (Calcium Carbonate 750 Mg Tab.Chew) 750 mg PO Q4H PRN PRN Reason: Heartburn Docusate Sodium (Docusate Sodium 100 Mg Capsule) 100 mg PO BID [facility] Last Admin: 06/06/24 08:02 Dose: 100 mg Enoxaparin Sodium (Enoxaparin Sodium 40 Mg/0.4 Ml Syringe) 40 mg SUBCUT Q24H [facility] Last Admin: 06/05/24 19:56 Dose: 40 mg Doxycycline Hyclate 100 mg/ (Sodium Chloride) 250 mls @ 166.67 mls/hr IV Q12H [facility] Last Infusion: 06/06/24 10:34 Dose: Infused Cefazolin Sodium/Dextrose (Ancef) 2 gm in 50 mls @ 100 mls/hr IV Q8H [facility] Last Infusion: 06/06/24 12:23 Dose: Infused Magnesium Hydroxide (Milk Of Magnesia 30 Ml Oral.Susp) 30 ml PO DAILY PRN PRN Reason: Constipation Melatonin (Melatonin 3 Mg Tablet) 6 mg PO BEDTIME PRN PRN Reason: Insomnia Morphine Sulfate (Morphine Sulfate 2 Mg/Ml Cartridge) 2 mg IVPUSH Q3H PRN; Protocol PRN Reason: Pain, Moderate(Pain Scale 4-6) Oxycodone HCl (Oxycodone Hcl Immed Release 5 Mg Tablet) 5 mg PO Q6H PRN PRN Reason: Pain, Moderate(Pain Scale 4-6) Last Admin: 06/06/24 13:04 Dose: 5 mg Senna (Sennosides 8.6 Mg Tablet) 17.2 mg PO BEDTIME PRN PRN Reason: Constipation Sodium Chloride (0.9 % Sodium Chloride Flush 3 Ml Syringe) 3 ml IVFLUSH QSHIFT [facility] Last Admin: 06/06/24 08:02 Dose: 3 ml Home Medications ?Medication ?Instructions ?Recorded ?Confirmed ?Last Taken ?Type No Known Home Meds 06/05/24 06/05/24 Unknown History Physical Exam 2 Vital Signs: Vital Signs: Last Vital Signs Temp 98.6 F 06/06/24 15:05 Pulse 60 06/06/24 15:05 Resp 20 06/06/24 15:05 BP 116/64 06/06/24 15:05 Pulse Ox 98 06/06/24 15:05 O2 Del Method Room Air 06/06/24 15:05 BMI result Body Mass Index 25.2 Extrem: Other: On inspection, there is no visible deformity of the left knee However, there is noted to be significant erythema of the anterior aspect of the right knee, with a focal area of purulence that has formed just distal to the left patella Area of purulence approximately 1 cm in diameter Patient reports significant tenderness to palpation of the anterior knee in the anterior medial and lateral joint lines No tenderness to palpation of the posterior knee Patient is able to extend the left knee to 10 degrees and flex to approximately 45 degrees, limited due to pain Distal sensation intact Capillary refill brisk Results Labs 06/06/24 08:24 06/04/24 15:47 Labs: Abnormal lab results 06/06/24 Range/Units 08:24 C-Reactive Protein 1.87 H (< or = 0.50) mg/dL H & H 06/04/24 06/06/24 Range/Units 15:47 08:24 Hgb 15.0 14.1 (14.0-18.0) g/dl Hct 45.1 42.9 (42.0-52.0) % All other labs normal. Assessment and Plan (1) Infected prepatellar bursa: Qualifiers: Laterality: left Qualified Code(s): M71.162 - Other infective bursitis, left knee Status: Acute Plan 1. Septic prepatellar bursitis of left knee After discussion with Dr. Castro, who was decided that bedside I and D would be the best way to proceed for this infection due to the superficial nature of the purulence Area of purulence and surrounding areas are injected with 1% lidocaine, with approximately 6 mL used Size 11 scalpel used to incise the skin overlying the focal area of purulence 3-4 cc of thick, yellow discharge is able to be expressed from the incision, along with small amounts of purulent fluid After no more purulence able to be expressed, purulence cavity is probed with Q- tip to break up loculations No further purulence able to be expressed Incision sites packed with gauze, dressed with Xeroform, gauze, and Kerlix Dressing should be changed tomorrow Encourage warm water soaks Continue IV antibiotics per Medicine Continue Pain management and all other recommendations per Medicine Orthopedics will continue to follow Procedures Date of Service Date of Service: 06/06/24
--- NOTE | 2024-06-06 15:38 | HO.PM.IMPN ---
Subjective Subjective Date of Service: 06/06/24 Interval History: patellar cellulitis vs abcess Review of Systems erythema somewhat improving has abcess in knee area no fevers Physical Exam Vital Signs: Vital Signs: Last Vital Signs Temp 98.6 F 06/06/24 15:05 Pulse 60 06/06/24 15:05 Resp 20 06/06/24 15:05 BP 116/64 06/06/24 15:05 Pulse Ox 98 06/06/24 15:05 O2 Del Method Room Air 06/06/24 15:05 BMI result Body Mass Index 25.2 Appearance: Alert.? Oriented X3.pain cvs: rrr, [id number] , no murmur res: clear to auscultation ,no rhonchii or wheezing abd: no rebound or guarding ,nt, bs present. ext pulses present , no cyanosis left knee -seems swelling /some flacutation in right knee area. neuro: axo3 , nonfocal. Objective Data Active Medications Acetaminophen (Acetaminophen 325 Mg Tablet) 650 mg PO Q6H PRN PRN Reason: Pain, Mild (Pain Scale 1-3), fever or headache Last Admin: 06/06/24 11:47 Dose: 650 mg Documented By: HIPOLITO Calcium Carbonate (Calcium Carbonate 750 Mg Tab.Chew) 750 mg PO Q4H PRN PRN Reason: Heartburn Docusate Sodium (Docusate Sodium 100 Mg Capsule) 100 mg PO BID [facility] Last Admin: 06/06/24 08:02 Dose: 100 mg Documented By: HIPOLITO Enoxaparin Sodium (Enoxaparin Sodium 40 Mg/0.4 Ml Syringe) 40 mg SUBCUT Q24H [facility] Last Admin: 06/05/24 19:56 Dose: 40 mg Documented By: ANNELIESE Doxycycline Hyclate 100 mg/ (Sodium Chloride) 250 mls @ 166.67 mls/hr IV Q12H [facility] Last Infusion: 06/06/24 10:34 Dose: Infused Documented By: HIPOLITO Cefazolin Sodium/Dextrose (Ancef) 2 gm in 50 mls @ 100 mls/hr IV Q8H [facility] Last Infusion: 06/06/24 12:23 Dose: Infused Documented By: HIPOLITO Magnesium Hydroxide (Milk Of Magnesia 30 Ml Oral.Susp) 30 ml PO DAILY PRN PRN Reason: Constipation Melatonin (Melatonin 3 Mg Tablet) 6 mg PO BEDTIME PRN PRN Reason: Insomnia Morphine Sulfate (Morphine Sulfate 2 Mg/Ml Cartridge) 2 mg IVPUSH Q3H PRN; Protocol PRN Reason: Pain, Moderate(Pain Scale 4-6) Oxycodone HCl (Oxycodone Hcl Immed Release 5 Mg Tablet) 5 mg PO Q6H PRN PRN Reason: Pain, Moderate(Pain Scale 4-6) Last Admin: 06/06/24 13:04 Dose: 5 mg Documented By: HIPOLITO Senna (Sennosides 8.6 Mg Tablet) 17.2 mg PO BEDTIME PRN PRN Reason: Constipation Sodium Chloride (0.9 % Sodium Chloride Flush 3 Ml Syringe) [facility] Last Admin: 06/06/24 08:02 Dose: 3 ml Documented By: HIPOLITO Labs 06/06/24 08:24 06/04/24 15:47 Labs: Laboratory Results - last 24 hr 06/06/24 08:24 MCV 89.9 MCH 29.6 MCHC 32.9 RDW 14.0 Plt Count 257 MPV 11.0 Absolute Nucleated RBC 0.000 Nucleated RBC % (auto) 0.0 C-Reactive Protein 1.87 H Microbiology Microbiology Results: Microbiology 06/04/24 15:47 Blood Culture - Preliminary Blood - Venous No growth after 24 hours. 06/04/24 15:47 Blood Culture - Preliminary Blood - Venous No growth after 24 hours. Assessment and Plan (1) Infected prepatellar bursa: Status: Acute Plan 28-year-old male with left knee bursitis: possible patellar area abcess /bursitis infected Unable to walk Significant pain intractable continue on IV morphine, IV antibiotics doxy/cefazolin. bowel regimen ortho eval-need I&D . Patient will be admitted observation stay: Due to unable to ambulate/intractable pain need IV antibiotics/IV pain medications. Quality Stroke Does the patient have a stroke diagnosis?: No VTE Prior VTE?: No VTE Risk Level:: Medical - moderate - high VTE Device Contraindication: N/A - Device Ordered VTE Drug Contraindication: N/A - Med Ordered
[2024-06-06 19:07] VITALS: BP 135/61; PULSE 67; RESP 20; TEMP 36.7; O2SAT 98
[2024-06-06] MEDS: Enoxaparin Sodium 40 MG/0.4 ML SYRINGE SUBCUT (20:11)
[2024-06-07] VITALS: BP 137/74; PULSE 69; RESP 16; TEMP 36.9; O2SAT 100
[2024-06-07] MEDS: ceFAZolin Sodium/Dextrose,Iso 2 GM/50 ML PIGGYBACK IV (03:57)
[2024-06-07 04:00] VITALS: BP 104/55; PULSE 61; RESP 16; TEMP 36.7; O2SAT 99
[2024-06-07 07:31] VITALS: BP 128/64; PULSE 71; RESP 18; TEMP 36.6; O2SAT 100
--- NOTE | 2024-06-07 07:47 | PM.PNORT ---
Subjective Subjective Date of Service: 06/07/24 Interval history: Day 1 s/p I&D left knee prepatellar bursitis No overnight events States his knee feels better Physical Exam Vital Signs: Vital Signs: Last Vital Signs Temp 97.9 F 06/07/24 07:31 Pulse 71 06/07/24 07:31 Resp 18 06/07/24 07:31 BP 128/64 06/07/24 07:31 Pulse Ox 100 06/07/24 07:31 O2 Del Method Room Air 06/07/24 07:31 BMI result Body Mass Index 25.2 Const: General: cooperative, healthy appearing and no acute distress Resp: Effort & Inspection: normal respiratory effort and able to speak in complete sentences Cardio: Rate: regular rate Peripheral pulses: Peripheral pulses 2+ throughout GI: Palpation (GI): Soft to palpation Skin: General skin exam: no rashes or lesions noted Extrem: Other: Left knee packing intact-removed at beside No drainage or purulance from incision site Mild erythema No joint effusion Patient is able to extend the left knee to 10 degrees and flex to 90 degrees Distal sensation intact Capillary refill brisk Procedures Date of Service Date of Service: 06/07/24 Progress Note: A&P Assessment and plan (1) Infected prepatellar bursa: Status: Acute Assessment and Plan: packing pulled dry dressings prn ROM and wbat continue iv abx per med recs Time Spent With Patient Time: Total time managing care of this patient today ____ minutes. Quality Stroke Does the patient have a stroke diagnosis?: No VTE Prior VTE?: No VTE Risk Level:: Medical - moderate - high VTE Device Contraindication: N/A - Device Ordered VTE Drug Contraindication: N/A - Med Ordered
[2024-06-07] MEDS: Docusate Sodium 100 MG CAPSULE PO (08:54)
[2024-06-07] MEDS: Doxycycline Hyclate 100 MG in 0.9 % Sodium Chloride 250 ML 166.67 MG IV (08:54)
[2024-06-07] MEDS: 0.9 % Sodium Chloride Flush 3 ML SYRINGE IVFLUSH (08:55)
--- NOTE | 2024-06-07 10:52 | P.DS_ITS ---
DS: Providers Provider Date of Service: 06/07/24 Date of admission: 06/04/24 18:37 Date of discharge: 06/07/24 Primary care physician: None Physician Consults: 06/06/24 08:27 Consult to Orthopedics Routine Consulting Provider: [facility] Reason for consultation: Knee bursitis vs abcess Has provider been notified: Yes Attending physician on discharge: Teresita Alexander Discharging clinician: Teresita Alexander DS: Diagnosis Discharge Diagnosis (1) Infected prepatellar bursa: Status: Acute DS: Summary Hospital Course Hospital Course: HPI:29-year-old male came to the hospital(as history of left upper leg question abscesses few months ago as per the patient which was treated with antibiotics) because of had a small blister on his knee which popped and afterwards developed cellulitis of left lower leg as well as has lymphangitis possible of left upper leg. Has significant area of erythema, difficulty to walk due to significant pain. denies known tick or inscet bites. denies fever/chills. has never had anything like this before. Lab imaging reviewed: Patient has leukocytosis of 12, BMP normal, knee x-ray shows possible patellar bursitis. ESR normal, CRP elevated in range of 4. CT abdomen pending Patient was given vancomycin and cefazolin in the ED and requested admission for acute bursitis/cellulitis of the left knee, and patient is unable to walk due to significant pain/ intractable pain. Denies any new complaint of chest pain or shortness of breath or abdominal pain or fever or chills or nausea or vomiting or weakness or numbness. Hospital course: Patient was admitted for right patellar area erythema and leg erythema with possible cellulitis-had mild leukocytosis, x-ray showed prepatellar bursitis- started on IV antibiotics, blood cultures sent, consulted Orthopedics: Patient is status post I and D yesterday.ct abd has left inguinal Lymph node enlargement possible reactive to cellulitis . Seen by orthopedics this morning-patient seems to be significantly improved with I&D and IV antibiotics, blood culture negative, patient is also working much better. groain pain and lymph node enlargement improving. Patient will be going home with p.o. antibiotics-doxycycline 100 mg p.o. b.i.d. for 10 days as well as Augmentin 875 mg p.o. b.i.d. for 10 days. Consider follow up outpatient with ortho. plan: complete doxycycline 100 mg p.o. b.i.d. for 10 days as well as Augmentin 875 mg p.o. b.i.d. for 10 days. moniter lymph node pain/enlargement -if any worsening or signifiacant pain again -go to [facility] ED. follow up pcp and ortho outpatient. Above management discussed with the patient detail length he understand in agreement with the plan, time spent 40 minute. Staff was present at time of conversation. Time Attestation Total time managing care of this patient today: 40 mintues. Discharge Coordination Time (in mins): 40min Quality: Safe Use of Opioids Does Pt have an Active Cancer Diagnosis on the Problem List?: No Quality: Stroke Does the patient have a stroke diagnosis?: No Physical Exam Vital Signs: Vital Signs: Last Vital Signs Temp 97.9 F 06/07/24 07:31 Pulse 71 06/07/24 07:31 Resp 18 06/07/24 07:31 BP 128/64 06/07/24 07:31 Pulse Ox 100 06/07/24 07:31 O2 Del Method Room Air 06/07/24 07:31 BMI result Body Mass Index 25.2 Appearance: Alert.? Oriented X3.pain cvs: rrr, [id number] . res: clear to auscultation ,no rhonchii or wheezing abd: no rebound or guarding ,nt, bs present. ext pulses present , no cyanosis left knee -wrapped ,less erythema /lymph node improving /groin pain improved.. neuro: axo3 , nonfocal. DS: Data Data Completed and Pending Labs on day of discharge: Preliminary micro results at discharge 06/04/24 15:47 Blood Culture - Preliminary Blood - Venous No growth after 48 hours. 06/04/24 15:47 Blood Culture - Preliminary Blood - Venous No growth after 48 hours. Imaging Chest x-ray: Radiologist's impression: ITS Impressions Knee X-Ray 06/04/24 16:26 IMPRESSION: Soft tissue swelling ventral to the patella which could represent a soft tissue contusion versus prepatellar bursitis. Electronically signed by: John Coy MD 06/04/2024 04:52 PM [facility] Abdomen/Pelvis CT 06/04/24 17:45 IMPRESSION: Enlarged left inguinal lymph nodes measuring up to 1.9 x 1.2 cm. Fleischner guidelines were followed. Electronically signed by: Lauri Singh MD 06/04/2024 06:42 PM [facility] Discharge Plan Discharge Anticipated Discharge Date/Time: 06/07/24 10:46 Patient Disposition: Home, Self-Care Discharge Diagnosis: infected prepetllar bursa s/p i&D Referrals: Xavier Harkins PA [Physician Daily Sales Audit Clerk] - 1 Week Aaron Worley PA-C [Physician Daily Sales Audit Clerk] - 1 Week Discharge Medications: New doxycycline monohydrate 100 mg Capsule 100 mg PO Q12H Qty: 20 0RF amoxicillin-pot clavulanate 875-125 mg Tablet 1 tab PO Q12H Qty: 20 0RF sennosides [Senna Lax] 8.6 mg Tablet 17.2 mg PO BEDTIME PRN (Reason: Constipation) Qty: 10 0RF acetaminophen 325 mg Tablet 650 mg PO Q6H PRN (Reason: Pain, Mild (Pain Scale 1-3), fever or headache) Qty: 20 0RF docusate sodium 100 mg Capsule 100 mg PO BID Qty: 20 0RF oxycodone 5 mg Tablet 5 mg PO Q6H PRN (Reason: Pain, Moderate(Pain Scale 4-6)) Qty: 12 0RF Rx Instructions: Partial Fill upon patient request. Discharge Orders: Discharge Order (Routine); Ordered 06/07/24 Ordered By: Teresita Alexander Diet: Advance to usual diet Activity on Discharge: As tolerated Stand Alone Forms: Patient Portal Discharge page, Work/School Release Print Language: [place] Care Plan Goals: Patient was admitted for right patellar area erythema and leg erythema with possible cellulitis-had mild leukocytosis, x-ray showed prepatellar bursitis- started on IV antibiotics, blood cultures sent, consulted Orthopedics: Patient is status post I and D yesterday. Seen by orthopedics this morning-patient seems to be significantly improved with I&D and IV antibiotics, blood culture negative, patient is also working much better. Patient will be going home with p.o. antibiotics-doxycycline 100 mg p.o. b.i.d. for 10 days as well as Augmentin 875 mg p.o. b.i.d. for 10 days. Consider follow up outpatient with ortho. Health Concerns: moniter lymph node pain/enlargement -if any worsening or signifiacant pain again -go to [facility] ED. complete doxycycline 100 mg p.o. b.i.d. for 10 days as well as Augmentin 875 mg p.o. b.i.d. for 10 days. As above. Plan of Treatment: -Weight bear as tolerated -Elevate above heart level to help reduce swelling -Perform ankle pumps to help circulation in the leg -Ice the knee throughout the day for the next 72 hours -Keep the dressing clean , dry and intact. Assessment: As above.
--- NOTE | 2024-06-07 11:35 | MHC.CM.PN ---
DP: PT HAS BEEN MEDICALLY CLEARED FOR DC HOME, NO SERVICES. PT HAS OWN RIDE HOME
[2024-06-07 11:43] VITALS: BP 124/76; PULSE 74; RESP 12; TEMP 37.1; O2SAT 98
[2024-06-07] MEDS: Amoxicillin/Potassium Clav 875 MG TABLET PO (11:49)
--- NOTE | 2024-06-09 08:50 | PC.NURSE ---
Back documentation for APAP administration 0853. Pt also given PO oxycodone at this time. Pt requesting PO medication for pain at this time and not IV medication. Pt aware that APAP order was for 1-3 pain however he still requested that he receive the medication at that time.
== END 2024-06-07 12:19 | disposition home or self-care (01) ==
LOC: HO.ED 18:35 → HO.EDOVER 18:45 → HO.S3 06-05 15:42
PROVIDERS: Physician Assistant Medical; Admitting Provider Internal Medicine; Emergency Provider Internal Medicine; Visit Provider Internal Medicine
DX: M71.162 Other infective bursitis, left knee (principal); M79.605 Pain in left leg; R10.32 Left lower quadrant pain; R59.0 Localized enlarged lymph nodes
CPT/HCPCS: 10060; 36415; 73564; 74176; 80053; 83605; 85025; 85027; 85652; 86140; 87040; 96365; 96366; 96367; 96368; 96372; 96375; 96376; 99221; 99285; J0690; J1200; J1650; J2270; J3370

== ENCOUNTER → 2024-06-04 18:37 | Outpatient (BNV) | payer MEDICAID, SELFPAY | PROVIDERS: Admitting Provider Internal Medicine; Emergency Provider Internal Medicine; Visit Provider Internal Medicine | DX: M71.162 Other infective bursitis, left knee (principal) | CPT/HCPCS: 99222; 99231; 99232; 99239 ==

== ENCOUNTER → 2024-06-04 18:37 | Outpatient (BNV) | payer MEDICAID, SELFPAY | PROVIDERS: Admitting Provider Internal Medicine; Emergency Provider Internal Medicine | DX: M71.162 Other infective bursitis, left knee (principal) | CPT/HCPCS: 27301; 99024; 99222 ==

== ENCOUNTER 2024-06-10 09:53 | Outpatient (AMB) | payer OTHER, SELFPAY ==
--- NOTE | 2024-06-10 10:17 | A.OFFVIS_ITS ---
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 Patient had a bedside I&D at the [facility] of the left knee. Patient reports a burning sensation on the anterior aspect of his left knee that radiates to the medial and lateral side. He also expresses he feels some swelling. Denies any drainage from the left knee. He has been taking Tylenol for his pain with relief and has been taking his antibiotics. 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 Today, the patient reports that he is doing much better, and that the redness and swelling have remained completely resolved since discharge from the hospital. However, the patient does report he is experiencing some minor left knee discomfort with range of motion, but this has improved significantly since treatment in the hospital. No other. [facility] Social History Household Members: Family Housing: Apartment Patient Tobacco Use Status: Never used Tobacco Substance Use Type: Marijuana service: No Physical Exam Vital Signs: BMI result Body Mass Index 25.0 Extrem Other: Patient's R knee normal to inspection No erythema, ecchymosis noted Small, healed I and D site noted over the prepatellar bursa of the left knee No evidence of infection Patient reports mild tenderness to palpation of the anterior knee, No tenderness to palpation of the medial or lateral joint lines, patella, quad tendon, patellar tendon, or posterior knee Patient is able to extend the knee to 0 degrees without difficulty Patient is able to flex the knee to 120 degrees without difficulty Distal sensation intact Capillary refill brisk Assessment & Plan Assessment & Plan (1) Infected prepatellar bursa: Code(s): M71.169 - Other infective bursitis, unspecified knee Category: Medical Qualifiers: Laterality: left Qualified Code(s): M71.162 - Other infective bursitis, left knee Plan 1. Septic prepatellar bursitis status post bedside I and D Date of procedure 06/06/2024 Patient appears to be recovering well Patient is educated about the typical recovery course Patient is educated that he should finish his current course of antibiotics, but given his exam findings today, I do not feel that a refill of these antibiotics as necessary Patient was amenable to this plan Patient was advised that if he continues to experience significant discomfort past 3-4 more weeks from now, he should call for a repeat assessment Patient was amenable to this plan as well Patient will follow-up as needed with any acute concerns Coding Level of Care Code New Pt Level 3 (33442) Diagnoses Infected prepatellar bursa M71.162 Laterality: left
[2024-06-10 10:19] VITALS: BMI 25.0
== END 2024-06-10 10:35 | disposition home or self-care (01) ==
PROVIDERS: PCP Internal Medicine
DX: M71.162 Other infective bursitis, left knee (principal)
CPT/HCPCS: 99024

== ENCOUNTER → 2024-06-10 09:53 | Outpatient (BNVA) | payer OTHER, SELFPAY | PROVIDERS: PCP Internal Medicine | DX: M71.162 Other infective bursitis, left knee (principal) | CPT/HCPCS: 99212 ==

== ENCOUNTER 2025-03-29 15:53 | Outpatient (AMB) | payer OTHER, SELFPAY ==
--- NOTE | 2025-03-29 16:00 | MHC.PC.OV ---
Vital Signs 03/29/25 16:07 Height 5 ft 5.75 in Weight 139 lb 8 oz BMI 22.7 BP 130/68 Blood Pressure Location Lt brachial Position Sitting Pulse 72 Pulse Source Pulse Oximeter Temp 97.3 F Temp Source Temporal Artery Scan Pulse Oximetry (%) 99 Oxygen Delivery Method Room Air Intake Visit Reasons: new patient Intake Note: Patient is a new patient here to establish care for Prediabetes (as a child). Transferring care from [facility]. Medical records have been requested and have not received. Sap Basis Required: No Stock Control Clerk: Not Required per policy Accompanied by: Self / Same As Patient Allergies No Known Allergies (No Known Allergies*) Allergy (Verified 03/29/25 16:07) Medication List - Last Reconciled 03/29/25 by Jose Valderrama MD sildenafil (Viagra) 25 mg PO DAILY PRN 1 month Tobacco use date assessed: 03/29/25 Dental Screening Dental Screen Date: 03/29/25 Did you have a dental visit in the last 12 months?: No Did you have a dental problem in the last 6 months where you did not have access to dental care?: No Was dental information given to patient?: No HPI HPI Comments History of Present Illness Details The patient is a 29-year-old male presenting for a general routine checkup after not seeing a doctor for several years. The patient reports a history of essential tremor, which worsens with stress or when performing tasks such as cutting hair. He has experienced this tremor for a significant period, and it is exacerbated by nervousness or activity. There is a family history of similar symptoms in an uncle. The patient has a history of prediabetes diagnosed in his youth. He has not reported any recent symptoms related to this condition. The patient occasionally experiences chest pain described as a pointing sensation, which resolves spontaneously. He denies any current shortness of breath or other respiratory symptoms. The patient has a history of substance use, specifically marijuana, which he has used since the age of 17. He smokes marijuana mixed with tobacco but does not use cigarettes regularly. Preventative care measures discussed include vaccinations, with the patient having received tetanus and other vaccines. He is open to receiving the flu vaccine. I told patient he can get the flu vaccine from any local pharmacy. [facility] Medical History (Updated 03/29/25 @ 16:52 by Jose Valderrama MD) Prediabetes Surgical History (Updated 03/29/25 @ 16:13 by DANI Whitlock) No pertinent past surgical history Social History (Updated 03/29/25 @ 16:14 by DANI Whitlock) Household Members: Family Housing: Apartment Alcohol intake: current Alcohol intake frequency: a few times a month Patient Tobacco Use Status: Never used Tobacco e-Cigarette/Vaping Use: Former Use Second Hand Smoke Exposure: No Substance Use Type: Marijuana Substance Use Frequency: Daily service: No Current occupational status: employed 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 1. Little interest or pleasure in doing things: several days 2. Feeling down, depressed, or hopeless: not at all 3. Trouble falling or staying asleep, or sleeping too much: several days 4. Feeling tired or having little energy: several days 5. Poor appetite or overeating: several days 6. Feeling bad about yourself - or that you are a failure or have let yourself or your family down: not at all 7. Trouble concentrating on things, such as reading the newspaper or watching television: not at all 8. Moving or speaking so slowly that other people could have noticed. Or the opposite - being so fidgety or restless that you have been moving around a lot more than usual: not at all 9. Thoughts that you would be better off or of hurting yourself in some way: not at all Total score: 4 Depression Screening Interpretation: Positive Depression Screening Done: Yes Source: Developed by Drs. Lewis Xiao, Ewelina Wong, Med Thibodeaux and colleagues, with an educational rita from [employer]. Thrive Questionnaire Date Thrive assessed: 03/29/25 I am a: Patient What is your living situation today?: I have a steady place to live Within the past 12 months, did the food you bought not last and you didn't have the money to get more?: Sometimes True Within the past 12 months, did you worry whether your food would run out before you got money to buy more?: I choose not to answer this question Do you have trouble paying for medicines?: No Do you have trouble getting transportation to medical appointments?: No Do you have trouble paying your heating and electricity bill?: No Do you have trouble taking care of your child, family member or friend?: No Do you have trouble with day-to-day activities such as bathing, preparing meals, shopping, managing finances, etc.?: No Are you currently unemployed and looking for a job?: No Are you interested in more education?: No Please select the resources that you would like help with: None Currently or been in a relationship where the following occur: No concerns reported THRIVE Score: 1 AUDIT C Alcohol Use Questionnaire (AUDIT-C) 1. How often do you have a drink containing alcohol?: Monthly or less 2. How many drinks containing alcohol do you have on a typical day when you are drinking?: 1 or 2 3. How often do you have six or more drinks on one occasion?: Less than monthly Total Score: 2 AMAYA-7 AMB Questionnaire AMAYA-7 Date AMAYA - 7 assessed: 03/29/25 Feeling nervous, anxious, or on edge: 1 = Several days Not being able to stop or control worryin = Not at all Worrying too much about different things: 0 = Not at all Trouble relaxin = Several days Being so restless that it is hard to sit still: 0 = Not at all Becoming easily annoyed or irritable: 1 = Several days Feeling afraid as if something awful might happen: 0 = Not at all Total AMAYA-7 score (0-4 normal; 5-9 mild; 10-14 moderate; 15-21 severe): 3 Source: Developed by Drs. Lewis Xiao, Ewelina Wong, Med Thibodeaux and colleagues, with an educational rita from [employer]. Review of Systems Const Details: Positives besides what was mentioned in HPI are in BOLD Constitutional: No Weight Change, No Fever, No Chills, No Night Sweats, No Fatigue, No Malaise ENT/Mouth: No Hearing Changes, No Ear Pain, No Nasal Congestion, No Sinus Pain, No Hoarseness, No sore throat, No Rhinorrhea, No Swallowing Difficulty Eyes: No Eye Pain, No Swelling, No Redness, No Foreign Body, No Discharge, No Vision Changes Cardiovascular: No Chest Pain, No SOB, No PND, No Dyspnea on Exertion, No Orthopnea, No Claudication, No Edema, No Palpitations Respiratory: No Cough, No Sputum, No Wheezing, No Smoke Exposure, No Dyspnea Gastrointestinal: No Nausea, No Vomiting, No Diarrhea, No Constipation, No Pain, No Heartburn, No Anorexia, No Dysphagia, No Hematochezia, No Melena, No Flatulence, No Jaundice Genitourinary: No Dysmenorrhea, No DUB, No Dyspareunia, No Dysuria, No Urinary Frequency, No Hematuria, No Urinary Incontinence, No Urgency, No Flank Pain, No Urinary Flow Changes, No Hesitancy Musculoskeletal: No Arthralgias, No Myalgias, No Joint Swelling, No Joint Stiffness, No Back Pain, No Neck Pain, No Injury History Skin: No Skin Lesions, No Pruritis, No Hair Changes, No Breast/Skin Changes, No Nipple Discharge Neuro: No Weakness, No Numbness, No Paresthesias, No Loss of Consciousness, No Syncope, No Dizziness, No Headache, No Coordination Changes, No Recent Falls Psych: No Anxiety/Panic, No Depression, No Insomnia, No Personality Changes, No Delusions, No Rumination, No SI/HI/AH/VH, No Social Issues, No Memory Changes, No Violence/Abuse Hx., No Eating Concerns Heme/Lymph: No Bruising, No Bleeding, No Transfusions History, No Lymphadenopathy Endocrine: No Polyuria, No Polydipsia, No Temperature Intolerance Physical exam (Primary Care) Vital Signs: Last Vital Signs Temp 97.3 F 03/29/25 16:07 Pulse 72 03/29/25 16:07 BP 130/68 03/29/25 16:07 Pulse Ox 99 03/29/25 16:07 Oxygen Delivery Method Room Air 03/29/25 16:07 BMI result Body Mass Index 22.7 Tobacco/Smoking Status: Tobacco use Status Tobacco use date assessed 03/29/25 03/29/25 16:15 Patient Tobacco Use Status Never used Tobacco 03/29/25 16:15 e-Cigarette/Vaping Use Former Use 03/29/25 16:15 PHQ-9: PHQ-9 Score PHQ-9: Total score 4 03/29/25 16:15 Depression Screening Interpretation: Positive Thrive Assessment: Date of Thrive Assessment Date Thrive assessed 03/29/25 03/29/25 16:15 Currently or been in a relationship where the following occur: No concerns reported Const Other: Pertinent findings are in BOLD GENERAL APPEARANCE NAD, activity normal for age, well developed/ well nourished, no cyanosis, pallor, or diaphoresis. EYES lids/conjunctiva normal. EARS/NOSE/THROAT Mucous membranes moist, nares normal, lips/teeth normal uvula midline without oral pharyngeal erythema, exudate or swelling TMs normal bilaterally. No lymphangitis/lymphedema. HEAD/NECK normocephalic atraumatic, no facial trauma, neck is supple. RESPIRATORY respiratory effort normal, speaks in full sentences, no tripod position, no accessory muscle use. Lungs clear to auscultation without rhonchi, wheezes, rales CARDIAC Regular rate and rhythm, no edema. ABDOMINAL Soft, ND/NT. No evidence of fluid wave. No pulsatile masses on exam, rebound tenderness, Simmons sign or pain over Mcburney's point. MUSCLES/EXTREMITIES No abnormal range of motion, no swelling. SKIN Warm, pink and dry. No rashes, dermatoses, petechiae or lesions. NEUROLOGICAL Speech is clear and appropriate. Normal level of consciousness. Gait and coordination are normal. 5/5 strength in all extremities. PSYCH Normal mood and affect. Judgement/competence is appropriate Coding Level of Care Code New Pt Level 4 (14730) Diagnoses Health care maintenance Z00.00 Prediabetes R73.03 Essential tremor G25.0 Erectile dysfunction, unspecified erectile dysfunction type N52.9 Erectile dysfunction type: unspecified Assessment & Plan Assessment & Plan (1) Health care maintenance: Code(s): Z00.00 - Encounter for general adult medical examination without abnormal findings Category: Medical Plan: CBC, CMP, HIV, Hep C, Hep B. (2) Prediabetes: Code(s): R73.03 - Prediabetes Category: Medical Plan: Patient reports history of prediabetes when he was younger. He was not tested since then. We will get A1C. 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 Propranolol 120 mg. (4) Erectile dysfunction: Code(s): N52.9 - Male erectile dysfunction, unspecified Category: Medical Qualifiers: Erectile dysfunction type: unspecified Qualified Code(s): N52.9 - Male erectile dysfunction, unspecified Plan: Patient having trouble with maintaining an erection. His mood is good. Sildenafil 25 mg PRN. Advised on the potential effects of MJ on libido and sexual activity. Plan During the visit, we discussed the management of essential tremor with propranolol, considering the patient's interest in trying the medication. We also addressed the patient's history of prediabetes, planning routine blood work to monitor glucose levels. The patient was advised on the potential impacts of marijuana use on mood and health, with a recommendation to reduce usage. Preventative care measures, including vaccinations, were emphasized, with the patient open to receiving the flu vaccine. Orders: Orders Complete Blood Count no Diff Today R73.03 - Prediabetes, Z00.00 - Encounter for general adult medical examination without abnormal findings HIV Ab/Ag Today R73.03 - Prediabetes, Z00.00 - Encounter for general adult medical examination without abnormal findings Hepatitis B Surface Antibody Today R73.03 - Prediabetes, Z00.00 - Encounter for general adult medical examination without abnormal findings Hepatitis B Surface Antigen Today R73.03 - Prediabetes, Z00.00 - Encounter for general adult medical examination without abnormal findings Comprehensive Met. Panel Today R73.03 - Prediabetes, Z00.00 - Encounter for general adult medical examination without abnormal findings Hemoglobin A1c Today R73.03 - Prediabetes, Z00.00 - Encounter for general adult medical examination without abnormal findings Hepatitis B Core Antibody Today R73.03 - Prediabetes, Z00.00 - Encounter for general adult medical examination without abnormal findings Hepatitis C Antibody Reflex Today R73.03 - Prediabetes, Z00.00 - Encounter for general adult medical examination without abnormal findings Medications: New sildenafil (Viagra) administer 30 minutes to 4 hours before activity 25 mg PO DAILY PRN 14 tabs 3RF sexual activity 1 month propranolol ER (Inderal LA) 120 mg PO BEDTIME 90 caps 3RF 3 months G25.0 - Essential tremor
[2025-03-29 16:07] VITALS: BP 130/68; PULSE 72; TEMP 36.3; O2SAT 99; BMI 22.7
== END 2025-03-29 16:38 | disposition home or self-care (01) ==
LOC: HO.HMCH 15:54
PROVIDERS: PCP Internal Medicine; Visit Provider Internal Medicine
DX: Z00.00 Encounter for general adult medical examination without abnormal findings (principal); R73.03 Prediabetes; G25.0 Essential tremor; N52.9 Male erectile dysfunction, unspecified

== ENCOUNTER 2025-03-29 15:53 | Outpatient (REF) | payer OTHER, SELFPAY ==
[2025-03-29 17:16] LABS: Hematocrit 45.6 % (42.0-52.0); Hemoglobin 15.3 g/dl (14.0-18.0); Mean Corpuscular HGB Conc 33.6 g/dl (31.0-36.0); Mean Corpuscular Hemoglobin 29.8 pg (27.0-33.0); Mean Corpuscular Volume 88.9 fL (80.0-98.0); NRBC Abs Auto 0.000 X10*3/uL (0.0-0.012); NRBC Pct Auto 0.0 /100WBC (0.0-0.2); Platelet Count 295 X10*3/uL (160-400); Red Blood Count 5.13 X10*6/uL (4.60-5.80); White Blood Count 6.5 X10*3/uL (4.8-10.8)
[2025-03-29 17:23] LABS: Total Hemoglobin (HGBA1C) 3834.3619 umol/L
[2025-03-29 17:46] LABS: Alanine Aminotransferase 18 U/L (0-40); Albumin Level 4.9 g/dL (3.5-5.0); Alkaline Phosphatase 65 U/L (39-117); Anion Gap 12 (12-20); Aspartate Amino Transferase 22 U/L (5-37); Blood Urea Nitrogen 15 mg/dL (9-16); Calcium 9.3 mg/dL (8.4-10.2); Carbon Dioxide 28 mmol/L (22-29); Chloride 106 mmol/L (96-108); Estimated Glomerular Filt Rate > 60; Potassium 4.2 mmol/L (3.3-5.1); Sodium 142 mmol/L (135-145); Total Protein 7.5 g/dL (6.5-8.0)
[2025-03-30 08:42] LABS: HBS Num1 > 1000.00 mIU/mL (0-7.99); HBc Num1 0.04 S/CO (0.00-0.79); HBsAGNum1 0.51 S/CO (0.00-0.99); HIV Num 1 0.05 S/CO (0.00-0.99); Hepatitis B Surface Antigen Negative (Negative); ~HepC Num1 0.11 S/CO (0.00-0.79); ~Hepatitis B Surface Antibody REACTIVE (Nonreactive); ~Hepatitis C Antibody Nonreactive (Nonreactive)
== END 2025-03-29 15:54 | disposition home or self-care (01) ==
LOC: HO.LAB 15:53
PROVIDERS: PCP Internal Medicine; Visit Provider Internal Medicine
DX: Z00.00 Encounter for general adult medical examination without abnormal findings (principal); R73.03 Prediabetes; G25.0 Essential tremor; N52.9 Male erectile dysfunction, unspecified
CPT/HCPCS: 36415; 80053; 83036; 85027; 86704; 86706; 86803; 87340; 87389

== ENCOUNTER 2025-04-14 11:10 | Emergency (ER) | payer OTHER, SELFPAY ==
--- NOTE | ~2025-04-14 | CT_ITS ---
EXAMINATION: CT ABDOMEN AND PELVIS WITH CONTRAST CLINICAL INFORMATION: Right lower quadrant tenderness. COMPARISON: 06/04/2024, 04/14/2019. TECHNIQUE: Multidetector volumetric images were obtained from the superior aspect of the liver through the pubic symphysis following administration 85 mL of Omnipaque 350 intravenous contrast. Sagittal and coronal reformatted images were obtained on the technologist's workstation. Oral contrast: No This CT examination was performed using dose optimization techniques as appropriate, variously including the following: *Automated exposure control *Adjustment of mA and/or kV according to patient size (this includes techniques or standardized protocols for targeted exams where dose is matched to indication/reason for exam; i.e. extremities or head) *Use of iterative reconstruction technique FINDINGS: LUNG BASES: Lung bases are clear. Heart size is normal. There are no effusions. LIVER, GALLBLADDER, AND BILIARY TREE: The liver is normal in size, shape, and attenuation. No suspicious focal hepatic lesion or biliary ductal dilatation is present. There is a 1.2 cm hemangioma in segment 2. The gallbladder is unremarkable with no evidence of radiopaque gallstones, gallbladder wall thickening, or obvious pericholecystic inflammatory changes. PANCREAS: Unremarkable. SPLEEN: There is a 1.4 cm enhancing hemangioma in the superior aspect of the spleen. Spleen otherwise normal. ADRENAL GLANDS: Unremarkable. KIDNEYS AND URETERS: The kidneys are normal in size, shape, and attenuation. No hydronephrosis, hydroureter, or calculi seen. No perinephric stranding. BLADDER: Unremarkable. GASTROINTESTINAL TRACT: The appendix is normal. Small bowel and large bowel are normal in appearance. The stomach is partially decompressed. The duodenum is normal. No rectal abnormalities. ABDOMINAL WALL: No significant hernia is appreciated. LYMPH NODES: There is no abnormal adenopathy present. VASCULAR: Unremarkable. PELVIC VISCERA: The prostate is normal. There is a 1.4 cm central utricle cyst, unchanged from prior studies. OSSEOUS STRUCTURES: No suspicious lytic or blastic bone lesions. CT/CT abdomen pelvis w IV con IMPRESSION: 1. No acute findings in the abdomen or pelvis. The appendix is normal. No imaging abnormality to explain right lower quadrant abdominal pain. Electronically signed by: Chris Duarte MD 04/14/2025 02:40 PM EDT
[2025-04-14 11:23] VITALS: BP 108/71; PULSE 57; RESP 18; TEMP 37; O2SAT 97; BMI 23.1
--- NOTE | 2025-04-14 11:28 | ED.GENADULT ---
HPI - General Adult General Chief complaint: Abdominal Pain Stated complaint: n/v/d , abd pain Time Seen by Provider: 04/14/25 12:26 Source: patient, RN notes reviewed and old records reviewed Mode of arrival: ambulatory Limitations: no limitations History of Present Illness ED Provider: Veronika [facility] narrative: Patient is a 29-year-old male presenting to the emergency department from urgent care for rule out appendicitis. Patient reports that he has had right lower quadrant pain for the past 2-3 weeks which recently worsened. States that on Thursday he had nausea, vomiting and diarrhea. Denies fevers. States pain is minimal at rest but increases with palpation. MD complaint: abdominal pain Onset (ago): week(s) Related Data Previous Rx's ?Medication ?Instructions ?Recorded propranolol 120 mg capsule,24 120 mg PO BEDTIME 3 months #90 caps 03/29/25 hr,extended release (Inderal LA) sildenafil 25 mg tablet (Viagra) 25 mg PO DAILY PRN sexual activity 03/29/25 1 month #14 tabs ondansetron 4 mg disintegrating 4 mg PO Q8H PRN nausea and 04/14/25 tablet vomiting #10 tabs Allergies Allergy/AdvReac Type Severity Reaction Status Date / Time No Known Allergies (No Known Allergy Verified 04/14/25 11:25 Allergies*) Review of Systems Review of Systems: as per hpi Yes all other systems are reviewed and are negative Constitutional: Constitutional: Reports as per HPI [facility] Past Medical History Medical History (Updated 04/14/25 @ 15:21 by Estefanía Banda NP) Prediabetes Surgical History (Updated 03/29/25 @ 16:13 by DANI Whitlock) No pertinent past surgical history Social History Social History (Updated 03/29/25 @ 16:14 by DANI Whitlock) Household Members: Family Housing: Apartment Alcohol intake: current Alcohol intake frequency: a few times a month Patient Tobacco Use Status: Never used Tobacco Smoked in Last 30 Days: No e-Cigarette/Vaping Use: Former Use Second Hand Smoke Exposure: No Use of substances other than those prescribed or required for medical reasons: Yes Substance Use Type: Marijuana Substance Use Frequency: Daily Advance Directives: No Advance Directives Information Provided: No service: No Current occupational status: employed 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 Blood pressure normal. Heart rate normal. Respiratory rate normal. Temperature normal. Oxygen saturation normal. Const General: cooperative, healthy appearing and no acute distress Orientation/consciousness: oriented to person, oriented to place, oriented to time and patient oriented x3 Limitations: no limitations HENMT Head: Yes normocephalic and Yes atraumatic Ears: external ears normal General nose exam: Normal external nose present Face and sinus: Yes face symmetric Mouth: oropharynx normal and moist mucous membranes Throat: Yes uvula midline Eyes Pupils: Equal, round and reactive pupils present Neck Neck: Yes normal visual inspection and Yes supple Resp Effort & Inspection: normal respiratory effort and able to speak in complete sentences Auscultation: clear to auscultation bilaterally Cardio Rate: regular rate Rhythm: regular rhythm Heart sounds: S1 normal heart sound present and S2 normal heart sound present GI Inspection: Yes normal to inspection and No visible herniation Palpation (GI): Soft to palpation, Tenderness to palpation present (GI) in the RLQ, no guarding, not rigid, no hernias and No Rebound tenderness present Auscultation: normoactive bowel sounds General: Yes no CVA tenderness Back/Spine/Pelvis Back: no CVA tenderness Skin General skin exam: elasticity normal and turgor normal Neuro General: oriented to person, oriented to place, oriented to time, patient oriented x3, moves all extremities, no focal motor deficits and CN's II-XI intact bilaterally Cranial nerves: Yes Equal, round and reactive pupils present Cognition (Neuro): normal cognition Extrem General: Yes full ROM, Yes no pedal edema and Yes no calf tenderness Psych Mental Status: mental status grossly normal Affect: normal affect Thought process: Normal thought process present Course Course Course Narrative: RME, this is a rapid medical exam performed by Rohan Melendrez please refer to primary provider for complete H&P- 29-year-old male presents for evaluation of right lower abdominal pain with nausea, vomiting and diarrhea. Symptoms started 3 days ago. He has been doing from urgent care to rule out acute appendicitis. Medications Administered Discontinued Medications Generic Name Dose Route Start Last Admin Trade Name Leonides PRN Reason Stop Dose Admin Iohexol 100 ml 04/14/25 14:24 04/14/25 14:24 Iohexol 350 Mg/Ml 100 Ml Infus..Btl IV 04/14/25 14:25 85 ml ONCE ONE Administration Medical Decision Making Medical Decision Making [facility] Narrative: Patient is a 29-year-old male presenting to the emergency department from urgent care for rule out appendicitis. On exam patient is awake, A+Ox3, VS WNL, afebrile, normal neurological exam without focal deficits, physical exam findings as above. Given reported symptoms and physical exam findings, initial differential includes but is not limited to appendicitis, hernia, gastroenteritis, colitis, ureteral calculi. Labs notable for no leukocytosis, no renal impairment. CT A/P notable for no evidence of appendicitis, obstructing calculi or other cause of patient's right lower quadrant abdominal pain. My interpretation is in agreement with the radiologist's interpretation. Results discussed with patient and all questions answered. Discussed with patient that his pain may be due to a recently passed ureteral calculi. Will send prescription for Zofran for nausea. Advised patient to follow up with PCP. Return precautions discussed at bedside. Patient verbalized understanding of and agreement with plan Differential Diagnosis Differential Diagnoses: The differential diagnosis associated with the presentation includes as per [facility] Admission/Observation Consideration of admission/observation: Escalation of care including admission/observation considered Patient would have been admitted to the hospital and transferred to appropriate facility had their clinical presentation warranted hospital admission. Lab Data [facility] Lab Attestation statement: I reviewed the patient's lab results. as per [facility] 04/14/25 11:39 04/14/25 11:39 Labs: Lab Results 04/14/25 Range/Units 11:39 WBC 6.8 (4.8-10.8) X10*3/uL RBC 4.91 (4.60-5.80) X10*6/uL Hgb 14.9 (14.0-18.0) g/dl Hct 44.7 (42.0-52.0) % MCV 91.0 (80.0-98.0) fL MCH 30.3 (27.0-33.0) pg MCHC 33.3 (31.0-36.0) g/dl RDW 14.1 (11.0-16.0) % Plt Count 293 (160-400) X10*3/uL MPV 10.2 (9.4-12.4) fL Immature Gran % (Auto) 0.1 (0.0-0.4) % Neut % (Auto) 45.7 (45-73) % Lymph % (Auto) 40.3 H (20-40) % [place] % (Auto) 8.9 (2-11) % Eos % (Auto) 4.1 H (0-4) % Baso % (Auto) 0.9 (0-2) % Lymph # (Auto) 2.7 (1.2-4.9) X10*3/uL [place] # (Auto) 0.6 (0.1-1.2) X10*3/uL Eos # (Auto) 0.3 (0.0-0.4) X10*3/uL Baso # (Auto) 0.1 (0.0-0.2) X10*3/uL Abs Immat Gran (auto) 0.01 (0.00-0.03) X10*3/uL Absolute Neuts (auto) 3.1 (2.0-8.3) x10*3/uL Absolute Nucleated RBC 0.000 (0.0-0.012) X10*3/uL Nucleated RBC % (auto) 0.0 (0.0-0.2) /100WBC Sodium 140 (135-145) mmol/L Potassium 4.5 (3.3-5.1) mmol/L Chloride 109 H (96-108) mmol/L Carbon Dioxide 26 (22-29) mmol/L Anion Gap 10 L (12-20) BUN 10 (9-16) mg/dL Creatinine 0.94 (0.5-1.4) mg/dL Estim Creat Clear Calc 100.8 Estimated GFR > 60 Random Glucose 92 (60-115) mg/dL Calcium 8.8 (8.4-10.2) mg/dL Total Bilirubin 0.4 (0.0-1.0) mg/dL AST 23 (5-37) U/L ALT 17 (0-40) U/L Alkaline Phosphatase 61 (39-117) U/L Total Protein 6.9 (6.5-8.0) g/dL Albumin 4.3 (3.5-5.0) g/dL Lipase 25 (8-78) U/L Urine Color Yellow Urine Appearance Clear Urine pH 5.5 (5.0-9.0) Ur Specific [place] 1.020 (1.005-1.025) Urine Protein Negative (Neg-Trace) mg/dL Urine Glucose (UA) Negative (Negative) mg/dL Urine Ketones Negative (Negative) mg/dL Urine Blood Negative (Negative) Urine Nitrite Negative (Negative) Ur Leukocyte Esterase Trace H (Negative) Urine RBC 0-2 (0-2) /HPF Urine WBC 0-5 (0-5) /HPF Ur Squamous Epith Cells 0-2 (0-2) /HPF Urine Bacteria None Seen (None Seen) Hyaline Casts 0-2 (0-2) /LPF Independent Interpretation I performed an independent interpretation of an: CT Scan Interpretation: CT A/P notable for no evidence of appendicitis, obstructing calculi or other cause of patient's right lower quadrant abdominal pain. Radiology Impression Discussion of test interpretation with radiology: I have reviewed the radiologist's reading. Radiologist Impression: CT/CT abdomen pelvis w IV con IMPRESSION: 1. No acute findings in the abdomen or pelvis. The appendix is normal. No imaging abnormality to explain right lower quadrant abdominal pain. External Record Review External record reviewed: Inpatient record, Office record and Outpatient record Prescription Management I considered prescription management with: Other Discharge Plan Discharge Clinical Impression: Abdominal pain, Gastroenteritis Patient Disposition: Home, Self-Care Instructions: Acute Nausea and Vomiting (DC), Acute Diarrhea (ED), Abdominal Pain (ED) Additional Instructions: You have been evaluated in the emergency department today for abdominal pain. Your evaluation did not show evidence of medical conditions requiring emergent intervention at this time. It is possible that your pain was due to recently passing a kidney stone. You are being prescribed ondansetron which you can take every 8 hours as needed for nausea/vomiting. Please schedule an appointment with your primary care physician for ongoing symptoms. Return to the emergency department if you experience worsening or uncontrolled pain, fevers 100.4? F or greater, recurrent vomiting, inability to tolerate food or fluids by mouth, bloody stools or vomit, black or tarry stools, or any other concerning symptoms. Prescriptions: New ondansetron 4 mg tablet,disintegrating 4 mg PO Q8H PRN (Reason: nausea and vomiting) Qty: 10 0RF No Action sildenafil [Viagra] 25 mg tablet 25 mg PO DAILY PRN (Reason: sexual activity) 30 Days Qty: 14 3RF Rx Instructions: administer 30 minutes to 4 hours before activity propranolol [Inderal LA] 120 mg capsule,extended release 24 hr 120 mg PO BEDTIME 90 Days Qty: 90 3RF Stand Alone Forms: Work/School Release Print Language: Kyrgyz
[2025-04-14 11:48] LABS: MANUAL DIFF FLAG NO
[2025-04-14 11:49] LABS: Hematocrit 44.7 % (42.0-52.0); Hemoglobin 14.9 g/dl (14.0-18.0); Imm Gran Abs Auto 0.01 X10*3/uL (0.00-0.03); Imm Gran Pct Auto 0.1 % (0.0-0.4); Lymphocytes Absolute Auto 2.7 X10*3/uL (1.2-4.9); Mean Corpuscular HGB Conc 33.3 g/dl (31.0-36.0); Mean Corpuscular Hemoglobin 30.3 pg (27.0-33.0); Mean Corpuscular Volume 91.0 fL (80.0-98.0); NRBC Abs Auto 0.000 X10*3/uL (0.0-0.012); NRBC Pct Auto 0.0 /100WBC (0.0-0.2); Platelet Count 293 X10*3/uL (160-400); Red Blood Count 4.91 X10*6/uL (4.60-5.80); White Blood Count 6.8 X10*3/uL (4.8-10.8)
[2025-04-14 11:50] LABS: Appearance Urine Clear; Glucose Urine UA Negative (Negative); PH 5.5 (5.0-9.0); Specific Gravity - Urine 1.020 (1.005-1.025); UMIC TRIGGER UACC YES
[2025-04-14 12:00] VITALS: BP 111/74; PULSE 82; RESP 15; TEMP 36.7; O2SAT 97
[2025-04-14 12:03] LABS: Alanine Aminotransferase 17 U/L (0-40); Albumin Level 4.3 g/dL (3.5-5.0); Alkaline Phosphatase 61 U/L (39-117); Anion Gap 10 (12-20); Aspartate Amino Transferase 23 U/L (5-37); Blood Urea Nitrogen 10 mg/dL (9-16); Calcium 8.8 mg/dL (8.4-10.2); Carbon Dioxide 26 mmol/L (22-29); Chloride 109 mmol/L (96-108); Creatinine Clr Calc Pharmacy 100.8; Estimated Glomerular Filt Rate > 60; Lipase 25 U/L (8-78); Potassium 4.5 mmol/L (3.3-5.1); Sodium 140 mmol/L (135-145); Total Protein 6.9 g/dL (6.5-8.0)
[2025-04-14] MEDS: iohexoL 350 MG/ML 100 ML INFUS..BTL IV (14:24)
[2025-04-14 14:29] VITALS: BP 115/74; PULSE 82; RESP 15
[2025-04-14 15:41] VITALS: BP 115/74; PULSE 82; RESP 15; TEMP 36.6; O2SAT 100
== END 2025-04-14 15:43 | disposition home or self-care (01) ==
PROVIDERS: Physician Assistant; Emergency Provider Emergency Medicine Emergency Medical Services; PCP Internal Medicine
DX: R10.9 Unspecified abdominal pain (principal); K52.9 Noninfective gastroenteritis and colitis, unspecified
CPT/HCPCS: 36415; 74177; 80053; 81001; 83690; 85025; 99284; 99285; Q9967

== ENCOUNTER → 2025-04-14 12:56 | Outpatient (BNV) | payer OTHER, SELFPAY | PROVIDERS: Emergency Provider Emergency Medicine Emergency Medical Services; PCP Internal Medicine; Visit Provider Radiology Diagnostic Radiology | DX: R10.813 Right lower quadrant abdominal tenderness (principal) | CPT/HCPCS: 74177 ==